=== PATIENT | female | born 1965 | race Caucasian/White ===

== ENCOUNTER 2016-11-29 11:56 | Outpatient (CLI) | payer MEDICARE ==
[2016-11-29 14:03] LABS: #Basophils 0.1 thou/uL (0.0-0.2); #Eosinphils 0.1 thou/uL (0.0-0.7); #Lymphocytes 2.1 thou/uL (1.20-3.40); #Monocytes 0.5 thou/uL (0.11-0.59); #Neutrophils 3.1 thou/uL (1.40-6.50); %Eosinophils 2.5 % (0.0-10.0); %Lymphocytes 35.5 % (21.0-51.0); %Monocytes 8.2 % (0.0-10.0); Hematocrit 42.9 % (36.0-47.0); Mean Platelet Volume 7.3 fL (7.4-10.4); Red Blood Cell (RBC) Count 4.82 mill/uL (4.20-5.40); White Blood Cell (WBC) Count 5.8 thou/uL (4.8-10.8)
[2016-11-29 14:13] LABS: ALT (SGPT) 12 U/L (0-55); AST (SGOT) 12 U/L (5-34); Alkaline Phosphatase 72 U/L (40-150); Anion Gap 12 mmol/L (10-20); BUN (Urea Nitrogen) 10 mg/dL (7.0-18.7); Bilirubin, Total 0.3 mg/dL (0.2-1.2); Calc. Creatinine Clearance 0 mL/min (70-130); Calcium 8.8 mg/dL (7.8-10.44); Carbon Dioxide 30 mmol/L (22-29); Chloride 105 mmol/L (98-107); Estimated GFR-MDRD 86; Globulin 2.4 g/dL (2.4-3.5); Protein, Total 5.8 g/dL (6.0-8.3)
== END 2016-11-29 11:57 ==
LOC: NAVSJIPCSP 11:56
PROVIDERS: ATTEND Internal Medicine
DX: G35 Multiple sclerosis (principal); N30.00 Acute cystitis without hematuria
CPT/HCPCS: 36415; 80053; 82607; 84443; 85025

== ENCOUNTER 2017-04-19 09:16 | Outpatient (CLI) | payer MEDICARE, OTHER ==
[2017-04-19 11:32] LABS: #Eosinphils 0.1 thou/uL (0.0-0.7); #Lymphocytes 1.6 thou/uL (1.20-3.40); #Monocytes 0.7 thou/uL (0.11-0.59); #Neutrophils 4.7 thou/uL (1.40-6.50); %Basophils 0.5 % (0.0-1.0); %Eosinophils 1.3 % (0.0-10.0); %Monocytes 9.3 % (0.0-10.0); Hemoglobin 13.6 g/dL (12.0-16.0); Mean Corpuscular HGB CONC 32.3 g/dL (32.0-36.0); Mean Corpuscular Hemoglobin 28.5 pg (27.0-31.0); Mean Corpuscular Volume 88.3 fl (81.0-99.0); Mean Platelet Volume 7.5 fL (7.4-10.4); Platelet Count 159 thou/uL (130-400); RBC Distribution Width 12.9 % (11.5-14.5); Red Blood Cell (RBC) Count 4.78 mill/uL (4.20-5.40); White Blood Cell (WBC) Count 7.1 thou/uL (4.8-10.8)
[2017-04-19 11:49] LABS: ALT (SGPT) 14 U/L (8-55); AST (SGOT) 14 U/L (5-34); Albumin 3.4 g/dL (3.5-5.0); Alkaline Phosphatase 63 U/L (40-150); Anion Gap 13 mmol/L (10-20); BUN (Urea Nitrogen) 8 mg/dL (7.0-18.7); Bilirubin, Total 0.4 mg/dL (0.2-1.2); Calc. Creatinine Clearance 0 mL/min (70-130); Calcium 8.8 mg/dL (7.8-10.44); Carbon Dioxide 30 mmol/L (22-29); Cardiac Risk 5.4 (Less than 4.5); Chloride 103 mmol/L (98-107); Cholesterol 210 mg/dl (< 200 Desired); Estimated GFR-MDRD 82; Globulin 2.3 g/dL (2.4-3.5); Glucose 83 mg/dL (70-105); HDL Cholesterol 39 mg/dL (>60 Neg Risk); LDL Cholesterol, Calculated 143 mg/dL; Potassium 4.4 mmol/L (3.5-5.1); Protein, Total 5.7 g/dL (6.0-8.3); Sodium 142 mmol/L (136-145); Triglycerides 140 mg/dL (Less than 150)
[2017-04-19 17:31] LABS: Valproic Acid (Depakene) 81.1 ug/mL (50.0-100.0)
== END 2017-04-19 09:17 | disposition home or self-care (01) ==
LOC: NAV LABSP 09:16
PROVIDERS: ATTEND Internal Medicine
DX: G35 Multiple sclerosis (principal); N39.0 Urinary tract infection, site not specified; G47.00 Insomnia, unspecified; R19.7 Diarrhea, unspecified
CPT/HCPCS: 36415; 80053; 80061; 80164; 84443; 85025

== ENCOUNTER 2019-09-25 19:08 | Inpatient (IN) | payer MEDICARE, OTHER ==
[2019-09-25 19:40] LABS: Bilirubin Negative (Negative); Blood, Urine Trace (Negative); Clarity Cloudy (Clear); Glucose, Urine (Dipstick) Negative (Negative); Leukocyte Moderate (Negative); Nitrite Positive (Negative); Protein, Urine (Dipstick) Trace mg/dL (Neg-Trace)
[2019-09-25 19:45] LABS: RBC/HPF None Seen HPF (0-3)
[2019-09-25 19:46] LABS: Squamous Epithelial 0-3 HPF (0-3)
[2019-09-25 19:47] LABS: Bacteria/HPF 3+ HPF (None Seen)
[2019-09-25 20:27] LABS: Hemoglobin 12.5 g/dL (12.0-16.0); Mean Corpuscular Hemoglobin 27.8 pg (27.0-31.0); Mean Corpuscular Volume 87.1 fL (78.0-98.0); Platelet Count 135 thou/uL (130-400); RBC Distribution Width 13.3 % (11.5-14.5); Red Blood Cell (RBC) Count 4.48 mill/uL (4.20-5.40); White Blood Cell (WBC) Count 5.5 thou/uL (4.8-10.8)
--- NOTE | 2019-09-25 20:37 | RAD ---
PORTABLE CHEST: 09/25/19 PROVIDED CLINICAL HISTORY: Fever. FINDINGS: The cardiac and mediastinal silhouette is within normal limits. Lungs appear clear. No pleural fluid or pneumothorax apparent. IMPRESSION: No evidence for an acute cardiopulmonary process. POS: JADA
[2019-09-25 20:39] LABS: ALT (SGPT) 19 U/L (8-55); AST (SGOT) 21 U/L (5-34); Albumin 3.7 g/dL (3.5-5.0); Alkaline Phosphatase 58 U/L (40-110); Anion Gap 16 mmol/L (10-20); BUN (Urea Nitrogen) 16 mg/dL (9.8-20.1); Bilirubin, Total 0.3 mg/dL (0.2-1.2); Calc. Creatinine Clearance 0 mL/min (70-130); Calcium 8.8 mg/dL (7.8-10.44); Carbon Dioxide 23 mmol/L (22-29); Chloride 102 mmol/L (98-107); Estimated GFR-MDRD 84; Globulin 2.3 g/dL (2.4-3.5); Glucose 124 mg/dL (70-105); Potassium 4.1 mmol/L (3.5-5.1); Sodium 137 mmol/L (136-145)
[2019-09-25] MEDS ORDERED: Sodium Chloride 0.9% 100 ML ONE (20:49)
[2019-09-25] MEDS ORDERED: cefTRIAXone\\ROCEPHIN 1 GM VIAL ONE (20:49)
[2019-09-25 21:05] LABS: Band 6 % (5-11); Eosinophils 2 % (0-10); Lymphocytes 21 % (21-51); MDiff Complete? YES; Monocytes 7 % (0-10); Neutrophil 63 % (42-75); Platelet Morphology Comment Appears Adequate; RBC Morphology Normal; Reactive Lymphocytes 1 % (0-10)
[2019-09-25] MEDS ORDERED: Acetaminophen 325 MG TAB PO PRN (22:09)
[2019-09-25 22:13] VITALS: BMI 31.9
[2019-09-25] MEDS ORDERED: Milk Of Magnesia 30 ML UDCUP PO PRN (22:18)
[2019-09-25] MEDS: Sodium Chloride 0.9% 1,000 ML IV SCH (22:58)
[2019-09-25] MEDS ORDERED: DULoxetine 30 MG CAP PO SCH (23:00)
[2019-09-25] MEDS ORDERED: Baclofen 10 MG TAB PO SCH (23:00)
[2019-09-25] MEDS ORDERED: busPIRone HCl 5 MG TAB PO SCH (23:00)
[2019-09-25] MEDS ORDERED: Diazepam 5 MG TAB PO SCH (23:00)
[2019-09-25] MEDS ORDERED: Trospium 20 MG TAB PO SCH (23:00)
[2019-09-25] MEDS: Acetaminophen/Codeine 30-300mg Tablet PO PRN (23:01)
[2019-09-26] MEDS: Sodium Chloride 0.9% 1,000 ML IV SCH ×2 (02:04→10:40)
[2019-09-26] MEDS: Baclofen 10 MG TAB PO SCH ×3 (08:13→21:01)
[2019-09-26] MEDS: CRANBERRY PO SCH (08:31)
[2019-09-26] MEDS: VIT C PO SCH (08:31)
[2019-09-26] MEDS: CeleCOXIB 100 MG CAP PO SCH (08:31)
[2019-09-26] MEDS ORDERED: AMOXicillin 500 MG CAP PO SCH (09:00)
[2019-09-26] MEDS ORDERED: FLU VACC QS2019-20(6MOS UP)/PF 60 MCG/0.5 ML SYRINGE IM ONE (09:00)
[2019-09-26] MEDS ORDERED: ADDERALL 30 MG PO SCH ×2 (09:00→11:00)
[2019-09-26] MEDS ORDERED: AMOXicillin 250 MG CAP PO SCH (09:00)
[2019-09-26] MEDS ORDERED: busPIRone HCl 5 MG TAB PO SCH (09:00)
[2019-09-26] MEDS ORDERED: Trospium 20 MG TAB PO SCH (09:00)
[2019-09-26] MEDS: busPIRone HCl 5 MG TAB PO PRN (13:56)
--- NOTE | 2019-09-26 20:21 | RAD ---
EXAM: Portable chest PROVIDED CLINICAL HISTORY: Pneumonia COMPARISON: 09/25/2019 FINDINGS: Cardiac and mediastinal silhouette is within normal limits. No focal consolidation, pleural fluid or pneumothorax evident. IMPRESSION: No evidence for an acute cardiopulmonary process.
[2019-09-26] MEDS ORDERED: Diazepam 5 MG TAB PO SCH (21:00)
[2019-09-26] MEDS: DULoxetine 30 MG CAP PO SCH (21:01)
[2019-09-26] MEDS: cefTRIAXone\\ROCEPHIN 1 GM in Sodium Chloride 0.9% 100 ML IVPB SCH (21:02)
--- NOTE | 2019-09-26 21:18 | PRG ---
DATE OF SERVICE: 09/26/2019 SUBJECTIVE: The patient is much more awake and alert at baseline mental status. She is having some cough and congestion, but denies any shortness of breath. OBJECTIVE: VITAL SIGNS: Temperature is 99.9, pulse 89, respirations 18, O2 saturations 93% on room air, blood pressure 114/57. IMAGING: Chest x-ray, however, shows no infiltrate. LABORATORY DATA: Urine and blood cultures are pending, no growth as of yet. ASSESSMENT: 1. Resolving urinary tract infection, sepsis syndrome. 2. Stable multiple sclerosis at baseline mental status. PLAN: 1. Change IV to saline lock. 2. Continue Rocephin. 3. Continue home medications. 4. Await results of cultures, possibly discharge soon. Job ID: [id number]
[2019-09-26] MEDS: Diazepam 5 MG TAB PO PRN (23:23)
[2019-09-26] MEDS: Acetaminophen/Codeine 30-300mg Tablet PO PRN (23:23)
--- NOTE | 2019-09-27 03:01 | HP ---
CHIEF COMPLAINT: Altered mental status secondary to urinary tract infection with sepsis syndrome. HISTORY OF PRESENT ILLNESS: The patient is an unfortunate 54-year-old white female with a history of multiple sclerosis, [facility] with a history of recurrent urinary tract infections, but with no previous history of sepsis. She presents, however, now with decreased mental status, minimal responsiveness, which is a direct change from her previous condition. She in fact has a [place] coma Scale of 11. The patient is unable to give history. History is obtained from previous examinations. She does have a history also of adult hyperactivity disorder, chronic pain, gastroesophageal reflux, muscle spasms. ALLERGIES: SHE HAS NO KNOWN ALLERGIES. CURRENT MEDICATIONS: Including, 1. Adderall 30 mg daily. 2. Amoxicillin 500 daily for prevention of infections. 3. Celebrex 200 daily. 4. Detrol LA 4 mg daily. 5. Buspirone 5 mg three times daily. 6. Cymbalta 60 mg daily. 7. Depakote extended release 500 mg daily. 8. Diazepam 5 mg at night. REVIEW OF SYSTEMS: Unobtainable. PHYSICAL EXAMINATION: GENERAL: The patient is a middle-aged white female who is sedated, but appears to be in no respiratory distress. VITAL SIGNS: Showed to have respirations 18, temperature 99.5, O2 sats 96% on room air, blood pressure 107/82, and pulse 103. HEENT: Pupils are equal, round, and reactive to light and accommodation. Sclerae anicteric. Conjunctivae pale. Oral mucous membranes well hydrated. There are some dental caries. NECK: Supple. There are no nodes or masses. JVP is not elevated. LUNGS: Clear. CARDIAC: Examination shows regular rhythm. No gallops or murmurs. ABDOMEN: Soft and nontender with no masses or organomegaly. SKIN: Extremities show no edema, clubbing, or cyanosis. NEUROLOGICAL: Intact except for the patient not responding, but does appear to move all extremities to pain. LABORATORY DATA: Show white count of 5500, hematocrit 39, hemoglobin 12. Lactate is 1.6. Sodium 137, potassium 4.1, chloride 102, bicarb 23, BUN 16, creatinine 0.73, glucose 124, calcium 8.8, total bilirubin 0.3, AST 21, ALT 19, alkaline phosphatase 58, total protein 6.0, albumin 3.7, globulin 2.3. Urinalysis did show 11-20 white cells. The patient appears to be showing E coli and Aerococcus routinely. Recent cultures had been treated for this with Rocephin in the emergency room. ASSESSMENT: A 54-year-old white female with history of multiple sclerosis and adult hyperactive disorder, who presents with altered mental status, unresponsiveness, recurrent urinary tract infections, felt to have sepsis syndrome causing this, will be admitted to the hospital, started on IV Rocephin 1 g daily, restarted back on home medications. Blood cultures and urine cultures done. Will be monitored closely for improvement. Job ID: [id number]
[2019-09-27 05:21] LABS: Band 2 % (5-11); Hemoglobin 11.1 g/dL (12.0-16.0); Lymphocytes 50 % (21-51); MDiff Complete? YES; Mean Corpuscular HGB CONC 31.7 g/dL (32.0-36.0); Mean Corpuscular Hemoglobin 27.8 pg (27.0-31.0); Mean Corpuscular Volume 87.7 fL (78.0-98.0); Mean Platelet Volume 8.8 fL (7.4-10.4); Monocytes 12 % (0-10); Neutrophil 36 % (42-75); Platelet Count 113 thou/uL (130-400); Platelet Morphology Comment Appears Decreased; RBC Distribution Width 13.7 % (11.5-14.5); RBC Morphology Normal; White Blood Cell (WBC) Count 4.6 thou/uL (4.8-10.8)
[2019-09-27] MEDS: CRANBERRY PO SCH (09:11)
[2019-09-27] MEDS: VIT C PO SCH (09:11)
[2019-09-27] MEDS: Baclofen 10 MG TAB PO SCH ×3 (09:16→20:43)
[2019-09-27] MEDS: CeleCOXIB 100 MG CAP PO SCH (09:17)
[2019-09-27] MEDS: ADDERALL 30 MG PO SCH (09:17)
[2019-09-27] MEDS: Acetaminophen/Codeine 30-300mg Tablet PO PRN ×2 (12:27→22:00)
[2019-09-27] MEDS: busPIRone HCl 5 MG TAB PO PRN (12:27)
[2019-09-27] MEDS: cefTRIAXone\\ROCEPHIN 1 GM in Sodium Chloride 0.9% 100 ML IVPB SCH (20:42)
[2019-09-27] MEDS: DULoxetine 30 MG CAP PO SCH (20:43)
[2019-09-27] MEDS: Diazepam 5 MG TAB PO PRN (22:00)
--- NOTE | 2019-09-28 08:37 | PRG ---
DATE OF SERVICE: 09/27/2019 SUBJECTIVE: The patient feels well, better baseline, mental status alert, oriented to person, but somewhat confused, still having a slight cough but no respiratory distress. OBJECTIVE: VITAL SIGNS: Blood pressure is 105/66, temperature is 97, pulse 80, respirations 18, O2 sats 94% on room air. LUNGS: Clear. CARDIAC: Regular rhythm. Chest x-ray shows no infiltrate. Urine culture showing gram-negative anastasiia, presumptive Proteus with no sensitivities as of yet. ASSESSMENT: 1. Resolving urinary tract infection, possible sepsis, on IV Rocephin. Awaiting results of culture to determine oral antibiotics and be able to discharge back to long term. 2. Stable multiple sclerosis. 3. Stable attention deficit hyperactivity disorder. PLAN: Continue Rocephin. Await urine culture. Discharge back to long term if oral antibiotics able to treat infection. Job ID: [id number]
[2019-09-28] MEDS ORDERED: FLU VACC QS2019-20(6MOS UP)/PF 60 MCG/0.5 ML SYRINGE IM ONE (09:00)
[2019-09-28] MEDS: Baclofen 10 MG TAB PO SCH ×2 (09:01→15:11)
[2019-09-28] MEDS: ADDERALL 30 MG PO SCH (09:02)
[2019-09-28] MEDS: CeleCOXIB 100 MG CAP PO SCH (09:05)
[2019-09-28] MEDS: VIT C PO SCH (09:06)
[2019-09-28] MEDS: CRANBERRY PO SCH (09:06)
[2019-09-28 14:13] VITALS: BP 117/56; TEMP 99.1
[2019-09-28] MEDS ORDERED: Sterile Water 10 ML ONE (17:56)
[2019-09-28] MEDS: cefTRIAXone\\ROCEPHIN 1 GM in Sodium Chloride 0.9% 100 ML IVPB SCH (18:01)
== END 2019-09-28 18:38 | DRG 871 ==
LOC: NAV ERS 19:08 → NAV ACUTE 20:56
PROVIDERS: ADMIT Internal Medicine; ATTEND Internal Medicine
DX: A41.9 Sepsis, unspecified organism (principal); R40.2222 Coma scale, best verbal response, incomprehensible words, at arrival to emergency department; N39.0 Urinary tract infection, site not specified; G35 Multiple sclerosis; F90.1 Attention-deficit hyperactivity disorder, predominantly hyperactive type; R40.2142 Coma scale, eyes open, spontaneous, at arrival to emergency department; R40.2352 Coma scale, best motor response, localizes pain, at arrival to emergency department; K21.9 Gastro-esophageal reflux disease without esophagitis; F90.9 Attention-deficit hyperactivity disorder, unspecified type
CPT/HCPCS: 36415; 51701; 71045; 80053; 81003; 81015; 83605; 85025; 87040; 87077; 87086; 87186; 90471; 90686; 96360; A4353; G0008; J0696; J3490; J7050

== ENCOUNTER 2020-10-04 19:29 | Inpatient (IN) | payer MEDICARE, OTHER ==
[2020-10-04 20:07] LABS: Bacteria/HPF 4+ HPF (None Seen); Bilirubin Negative (Negative); Blood, Urine Trace (Negative); Clarity Slightly Cloudy (Clear); Glucose, Urine (Dipstick) Negative (Negative); Ketone, Urine Trace mg/dL (Negative); Leukocyte Large (Negative); Nitrite Positive (Negative); Protein, Urine (Dipstick) 30 mg/dL (Neg-Trace); RBC/HPF 0-3 HPF (0-3); Squamous Epithelial 0-3 HPF (0-3); WBC/HPF 21-50 HPF (0-3)
[2020-10-04 20:31] LABS: #Lymphocytes 0.7 thou/uL (1.20-3.40); #Monocytes 0.7 thou/uL (0.11-0.59); #Neutrophils 10.8 thou/uL (1.40-6.50); %Basophils 0.4 % (0.0-1.0); %Eosinophils 0.1 % (0.0-10.0); %Lymphocytes 5.8 % (21.0-51.0); %Monocytes 5.4 % (0.0-10.0); %Neutrophils 88.3 % (42.0-75.0); Hemoglobin 13.1 g/dL (12.0-16.0); Mean Corpuscular HGB CONC 31.2 g/dL (32.0-36.0); Mean Corpuscular Hemoglobin 27.8 pg (27.0-31.0); Mean Corpuscular Volume 88.9 fL (78.0-98.0); Mean Platelet Volume 8.5 fL (7.4-10.4); Platelet Count 133 thou/uL (130-400); RBC Distribution Width 13.8 % (11.5-14.5); Red Blood Cell (RBC) Count 4.71 mill/uL (4.20-5.40); White Blood Cell (WBC) Count 12.3 thou/uL (4.8-10.8)
[2020-10-04] MEDS ORDERED: cefTRIAXone\\ROCEPHIN 2 GM VIAL ONE (20:49)
[2020-10-04 20:50] LABS: ALT (SGPT) 20 U/L (8-55); AST (SGOT) 15 U/L (5-34); Albumin 3.3 g/dL (3.5-5.0); Alkaline Phosphatase 65 U/L (40-110); Anion Gap 12 mmol/L (10-20); BUN (Urea Nitrogen) 20 mg/dL (9.8-20.1); Bilirubin, Total 0.4 mg/dL (0.2-1.2); Calc. Creatinine Clearance 0 mL/min (70-130); Calcium 8.4 mg/dL (7.8-10.44); Carbon Dioxide 26 mmol/L (22-29); Chloride 103 mmol/L (98-107); Estimated GFR-MDRD 81; Globulin 2.7 g/dL (2.4-3.5); Glucose 192 mg/dL (70-105); Sodium 137 mmol/L (136-145)
--- NOTE | 2020-10-04 21:03 | RAD ---
AP CHEST: 10/04/20 HISTORY: Fever. COMPARISON: 09/26/19 Lungs appear clear. No evidence of infiltrate identified. Heart and mediastinum unremarkable. No inte rval change. IMPRESSION: No acute findings. POS: AGW
[2020-10-04] MEDS ORDERED: Sodium Chloride 0.9% 500 ML ONE (21:44)
[2020-10-04 23:03] VITALS: BMI 30.4
[2020-10-04] MEDS ORDERED: Diazepam 5 MG TAB PO SCH (23:30)
[2020-10-04] MEDS ORDERED: Baclofen 10 MG TAB PO SCH (23:30)
[2020-10-04] MEDS ORDERED: Sodium Chloride 0.9% 10 ML ONE (23:58)
[2020-10-05] MEDS ORDERED: Sodium Chloride 0.9% 1,000 ML IV SCH (00:45)
[2020-10-05] MEDS ORDERED: Ondansetron PF 4 MG/2 ML Vial IVP PRN (06:30)
[2020-10-05] MEDS ORDERED: Acetaminophen 325 MG TAB PO PRN (06:30)
[2020-10-05 07:45] LABS: Band 40 % (5-11); Hemoglobin 13.4 g/dL (12.0-16.0); Lymphocytes 11 % (21-51); MDiff Complete? YES; Mean Corpuscular Hemoglobin 28.1 pg (27.0-31.0); Mean Corpuscular Volume 90.6 fL (78.0-98.0); Mean Platelet Volume 10.7 fL (7.4-10.4); Metamyelocyte 1 % (0-0); Monocytes 2 % (0-10); Neutrophil 46 % (42-75); Platelet Clumps SLIGHT; Platelet Count 77 thou/uL (130-400); Platelet Morphology Comment Appears Decreased; RBC Distribution Width 14.1 % (11.5-14.5); RBC Morphology Normal; Red Blood Cell (RBC) Count 4.76 mill/uL (4.20-5.40); White Blood Cell (WBC) Count 21.7 thou/uL (4.8-10.8)
[2020-10-05] MEDS: Enoxaparin Sodium 40 MG/0.4 ML SYRINGE SC SCH (08:01)
[2020-10-05] MEDS: Baclofen 10 MG TAB PO SCH ×3 (08:02→20:26)
[2020-10-05] MEDS: Oxybutynin 5 MG TAB PO SCH (08:02)
[2020-10-05] MEDS: DULoxetine 30 MG CAP PO SCH (08:02)
[2020-10-05] MEDS: busPIRone HCl 5 MG TAB PO SCH ×3 (08:02→20:27)
[2020-10-05] MEDS: Famotidine/PF 20 mg/2ml Vial SLOW IVP SCH ×2 (08:03→20:27)
[2020-10-05] MEDS: CeleCOXIB 100 MG CAP PO SCH (08:04)
[2020-10-05] MEDS: Sodium Chloride 0.9% 1,000 ML IV SCH ×3 (08:05→22:53)
[2020-10-05] MEDS: CRANBERRY PLUS VITAMIN C SFTGL PO SCH (08:08)
[2020-10-05] MEDS: COPAXONE 20 MG SC SCH (08:08)
[2020-10-05] MEDS: ADDERALL 30 MG PO SCH (08:08)
[2020-10-05] MEDS ORDERED: GLATIRAMER ACETATE 40 MG/ML SQ SCH (09:00)
[2020-10-05] MEDS ORDERED: Non-Formulary Item 1 EACH (Dextroamphetamine/Amphetamine [Adderall] 30 MG Tablet) PO SCH (09:00)
[2020-10-05] MEDS ORDERED: Non-Formulary Item 1 EACH (Baclofen [Baclofen] 20 MG Tablet) PO SCH (09:00)
[2020-10-05] MEDS ORDERED: Vancomycin HCl 1 GM in Sodium Chloride 0.9% 250 ML 250 ML IVPB SCH (09:00)
[2020-10-05] MEDS ORDERED: Non-Formulary Item 1 EACH (Celecoxib [Celebrex] 200 MG Capsule) PO SCH (09:00)
[2020-10-05] MEDS ORDERED: busPIRone HCl 5 MG TAB PO SCH (09:00)
[2020-10-05 11:00] LABS: Lactic Acid 3.6 mmol/L (0.5-2.2)
[2020-10-05 11:04] LABS: Anion Gap 15 mmol/L (10-20); BUN (Urea Nitrogen) 17 mg/dL (9.8-20.1); Calc. Creatinine Clearance 132 mL/min (70-130); Calcium 8.4 mg/dL (7.8-10.44); Carbon Dioxide 24 mmol/L (22-29); Chloride 103 mmol/L (98-107); Estimated GFR-MDRD 83; Glucose 108 mg/dL (70-105); Potassium 4.7 mmol/L (3.5-5.1); Sodium 137 mmol/L (136-145)
[2020-10-05] MEDS: Piperacillin/Tazobactam 3.375 GM in Sodium Chloride 0.9% 100 ML IVPB SCH ×2 (13:04→19:19)
[2020-10-05 18:30] LABS: SARS-CoV-2 MS2 Positive; SARS-CoV-2 N Gene Positive; SARS-CoV-2 S Gene Negative; SARS-CoV-2 by NAA DETECTED (NotDetected); SARS-CoV-2 orf1ab Positive
[2020-10-05] MEDS: cefTRIAXone\\ROCEPHIN 2 GM in Sodium Chloride 0.9% 100 ML IVPB SCH (19:09)
--- NOTE | 2020-10-05 19:59 | RAD ---
RADIOGRAPH CHEST 1 VIEW: DATE: 10/05/2020 TIME: 7:41 PM HISTORY: 55-year-old COVID-19 positive female presents with fever COMPARISON: 10/04/2020 FINDINGS: Subtle finding of faint small, subtle pulmonary ill-defined densities at right medial base and left m edial and lateral base, possibly new since prior study. No consolidation or cardiomegaly. No pneumothorax. IMPRESSION: Questionable faint mild bibasilar infiltrates. Recommend continued follow-up.
[2020-10-05] MEDS: Diazepam 5 MG TAB PO SCH (20:27)
[2020-10-05] MEDS ORDERED: Diazepam 5 MG TAB PO SCH (21:00)
[2020-10-05] MEDS ORDERED: FLU VACC QS2020-21(6MOS UP)/PF 60 MCG/0.5 ML SYRINGE IM ONE (21:00)
[2020-10-05] MEDS ORDERED: DULOXETINE HCL 60 MG PO SCH (21:00)
--- NOTE | 2020-10-06 02:10 | HP ---
HISTORY OF PRESENT ILLNESS: The patient is a 55-year-old unfortunate white female with a history of multiple sclerosis, progressive dementia, and recurrent urinary tract infections, who presented with a decrease in her mental status and fever. She was found to have a urinary tract infection with signs of sepsis with tachycardia as well as an elevated lactate of 3.4. Her chest x-ray was clear, however, and her blood pressure and O2 saturation were normal, COVID test was done, but results were not available initially on admission. It was felt that she was stable to be admitted to [facility] and therefore was admitted. History is not available because of patient's condition. Review of systems is obtained in the custodial when she has temperature to 102, foul-smelling urine, decreased mental status. PAST MEDICAL HISTORY: Obtained from the nursing homes for multiple sclerosis, recurrent UTIs, gastroesophageal reflux, osteoarthritis. ALLERGIES: SHE HAS NO KNOWN ALLERGIES. MEDICATIONS: Included; 1. Adderall 30 mg daily. 2. Amoxicillin 500 daily. 3. Celebrex 200 daily. 4. Detrol LA 24 daily. 5. Cymbalta 60 mg daily. 6. Depakote 500 daily. PHYSICAL EXAMINATION: GENERAL: The patient is a middle-aged white female, moaning and groaning, responsive only to pain. Appears to be in no respiratory distress. VITAL SIGNS: Initially showed her to have 147/86, pulse 120, O2 saturation 100% on room air. HEENT: Pupils are equal, round, and reactive to light and accommodation. Sclerae anicteric. Conjunctivae are within normal limits. Oral mucous membranes dehydrated. . NECK: Supple. There are no nodes or masses. JVP is not elevated. LUNGS: Clear. CARDIAC: Showed regular rhythm. No gallops or murmurs, but tachycardic rhythm. ABDOMEN: Obese, but nontender. SKIN/EXTREMITIES: Show edema, right greater than left. NEUROLOGIC: Shows patient moves all extremities to pain. LABORATORY DATA: White count 21,700, hematocrit 43, hemoglobin 13. Sodium is 137, potassium 4.0 chloride 103, bicarb 26, BUN 20, creatinine 0.75, glucose 192. Lactic acid is 3.6, calcium is 8.4. Urinalysis shows large leukocyte 21 to 50 white cells. ASSESSMENT: Urinary tract infection with sepsis syndrome, stable multiple sclerosis. PLAN: 1. Normal saline 125 an hour, broad-spectrum antibiotic with Zosyn and vancomycin. 2. COVID testing. 3. Continue home medications. Job ID: [id number]
[2020-10-06] MEDS: Sodium Chloride 0.9% 1,000 ML IV SCH ×3 (05:15→16:05)
[2020-10-06 05:55] LABS: Lactic Acid 1.1 mmol/L (0.5-2.2)
[2020-10-06 06:00] LABS: Anion Gap 8 mmol/L (10-20); BUN (Urea Nitrogen) 13 mg/dL (9.8-20.1); Calc. Creatinine Clearance 133 mL/min (70-130); Calcium 8.1 mg/dL (7.8-10.44); Carbon Dioxide 24 mmol/L (22-29); Chloride 108 mmol/L (98-107); Estimated GFR-MDRD 85; Glucose 130 mg/dL (70-105); Potassium 3.4 mmol/L (3.5-5.1); Sodium 137 mmol/L (136-145)
[2020-10-06 06:55] LABS: Band 31 % (5-11); Hemoglobin 11.7 g/dL (12.0-16.0); Lymphocytes 21 % (21-51); MDiff Complete? YES; Mean Corpuscular HGB CONC 32.1 g/dL (32.0-36.0); Mean Corpuscular Hemoglobin 28.3 pg (27.0-31.0); Mean Corpuscular Volume 88.3 fL (78.0-98.0); Mean Platelet Volume 8.7 fL (7.4-10.4); Metamyelocyte 1 % (0-0); Monocytes 5 % (0-10); Neutrophil 42 % (42-75); Platelet Count 112 thou/uL (130-400); Platelet Morphology Comment Appears Decreased; RBC Distribution Width 14.2 % (11.5-14.5); RBC Morphology Normal; Red Blood Cell (RBC) Count 4.12 mill/uL (4.20-5.40); White Blood Cell (WBC) Count 11.8 thou/uL (4.8-10.8)
[2020-10-06] MEDS: Enoxaparin Sodium 40 MG/0.4 ML SYRINGE SC SCH (08:42)
[2020-10-06] MEDS: DULoxetine 30 MG CAP PO SCH (08:43)
[2020-10-06] MEDS: Famotidine/PF 20 mg/2ml Vial SLOW IVP SCH ×2 (08:43→20:08)
[2020-10-06] MEDS: busPIRone HCl 5 MG TAB PO SCH ×3 (08:44→20:09)
[2020-10-06] MEDS: Oxybutynin 5 MG TAB PO SCH (08:44)
[2020-10-06] MEDS: Baclofen 10 MG TAB PO SCH ×3 (08:44→20:10)
[2020-10-06] MEDS: CeleCOXIB 100 MG CAP PO SCH (08:46)
[2020-10-06] MEDS: COPAXONE 20 MG SC SCH (08:47)
[2020-10-06] MEDS: ADDERALL 30 MG PO SCH (08:47)
[2020-10-06] MEDS ORDERED: Dexamethasone 6 MG in Sodium Chloride 0.9% 50 ML IVPB SCH (09:00)
[2020-10-06] MEDS ORDERED: Dexamethasone 4 mg/ml Vial SLOW IVP SCH (09:00)
[2020-10-06] MEDS: CRANBERRY PLUS VITAMIN C SFTGL PO SCH (11:06)
[2020-10-06] MEDS ORDERED: Dexamethasone 4 MG TAB PO SCH (11:15)
--- OUTSIDE RECORDS SUMMARY | 2020-10-06 12:56 | XMS | Patient Health Record ---
:1965 Author Organization [facility] Care Team Providers Name Role Phone Sophia Alfred Unavailable [phone] Padmini Perez Unavailable [phone] King Cruz Unavailable [phone] Silas Low Unavailable [phone] PROBLEMS Type Condition ICD9-CM [id number] Onset Condition SNOMED Code Notes Code Code Dates Status Problem Multiple G35 Active 02569027 sclerosis Problem Acute cystitis N30.00 Active 62670422 without hematuria Problem Altered mental R41.82 Active 652620830 status, unspecified altered mental status type Problem Pain R52 Active 25259374 Problem Attention and R41.840 Active 28819809 concentration deficit Problem Anxiety disorder F41.9 Active 761244096 Problem Major depressive F32.9 Active 51255829 disorder, single episode, unspec ALLERGIES No Known Allergies ENCOUNTERS from 1965 to 2020-10-05 Encounter Location Date Provider Diagnosis [address] Sep, [facility] [place], [place] concent ration deficit Medicine - Primary [id number] R41.840 Care DAVID IMMUNIZATIONS No Information SOCIAL HISTORY Sex Assigned At : Social History Observation Description Sex Assigned At Unknown REASON FOR REFERRAL from 1965 to 2020-10-05 Reason CCM Referring Provider First Name Alfred Referring Provider Last Name Sophia Referring Provider Specialty Internal Medicine Referring Provider email [email or web address] Referred Provider [facility] stem, Medical Records Referral Priority Routine VITAL SIGNS from 1965 to 2020-10-05 Weight 182 lbs Jun, Height w/c in Dec, Heart Rate 86 /min May, Temperature 97.9 degrees Fahrenheit May, Oximetry 96 % May, Respiratory Rate 20 /min Jun, Blood pressure systolic 136 mm Hg May, Blood pressure diastolic 70 mm Hg May, MEDICATIONS Medication SIG (Take, Route, Frequency, Notes Start Date End Ej e Status Duration) Adderall 30 MG 30 Orally Once a day for 30 days Sep, 20 Active PROCEDURES No Information RESULTS No Results REASON FOR VISIT REFILL, Message, Refills, lps, refill of Adderall, Refills, lps, REFILL, lps, AMS, Rash to face, REFILL ON ADDERALL 30MG, Adderall Refill, 1 month f/u, Message, REFILL ADDERALL 30MG , Triplicate, REFILL, Nees triplicate, TRIPLICATE ON ADDERALL, Refills, Message, NEEDS RX FOR ADDERALL, NEEDS RX FOR ADDERALL, 6 month f/u me , rx refill, Adderall rx, REFILL ON TYLENOL W/COD #3, monthly f/u, PA NEEDED FOR NUVIGIL, New orders and Triplicate, Triplicate for Diazepam, Triplicate, Triplicate, Pt's behavior,6 mon f/u multiple sclerosis, Triple script., Rx, monthly visit, Triplicate, Rx, MS/ copaxone/ [facility], MS/Copaxone, MS/Copaxone MEDICAL (GENERAL) HISTORY Type Description Date Medical History Multiple Sclerosis Goals Section No Information Health Concerns No Information MEDICAL EQUIPMENT No Information MENTAL STATUS No Information FUNCTIONAL STATUS No Information ASSESSMENTS Encounter Date Diagnosis Assessment Notes Treatment Notes Treatm ent Clinical Notes Sep, Attention and concentration deficit (ICD-10 - R41.840) Jul, Attention and concentration deficit (ICD-10 - R41.840) Jul, Attention and concentration deficit (ICD-10 - R41.840) May, Attention and concentration deficit (ICD-10 - R41.840) Apr, Attention and concentration deficit (ICD-10 - R41.840) Apr, Attention and concentration deficit (ICD-10 - R41.840) March, Attention and concentration deficit (ICD-10 - R41.840) Jan, Attention and concentration deficit (ICD-10 - R41.840) Jan, Attention and concentration deficit (ICD-10 - R41.840) Dec, Attention and concentration deficit (ICD-10 - R41.840) Nov, Attention and concentration deficit (ICD-10 - R41.840) Oct, Attention and concentration deficit (ICD-10 - R41.840) Sep, Multiple sclerosis (ICD-10 - G35) Sep, Attention and concentration deficit (ICD-10 - R41.840) Aug, Attention and concentration deficit (ICD-10 - R41.840) Jul, Attention and concentration deficit (ICD-10 - R41.840) Jun, Attention and concentration deficit (ICD-10 - R41.840) May, Attention and stble and working concentration well with nurses deficit (ICD-10 - and getting out of R41.840) room May, Multiple sclerosis stable with (ICD-10 - G35) chronic chair ridden status but no change in mental confusion May, Major depressive stable disorder, single episode, unspec (ICD-10 - F32.9) May, Acute cystitis will start on rx without hematuria with bactrim (ICD-10 - N30.00) pending results of urine culture and will discuss with nurses about prophylactic care and start on dmannose May, Acute cystitis without hematuria (ICD-10 - N30.00) Apr, Attention and stble and working concentration well with nurses deficit (ICD-10 - and getting out of R41.840) room Apr, Multiple sclerosis stable with (ICD-10 - G35) chronic chair ridden status but no change in mental confusion Apr, Major depressive stable disorder, single episode, unspec (ICD-10 - F32.9) Apr, Acute cystitis will start on rx without hematuria with bactrim (ICD-10 - N30.00) pending results of urine culture and will discuss with nurses about prophylactic care and start on dmannose Apr, Attention and concentration deficit (ICD-10 - R41.840) March, Attention and stble and working concentration well with nurses deficit (ICD-10 - and getting out of R41.840) room March, Multiple sclerosis stable with (ICD-10 - G35) chronic chair ridden status but no change in mental confusion March, Major depressive stable disorder, single episode, unspec (ICD-10 - F32.9) March, Acute cystitis will start on rx without hematuria with bactrim (ICD-10 - N30.00) pending results of urine culture and will discuss with nurses about prophylactic care and start on dmannose Feb, Attention and concentration deficit (ICD-10 - R41.840) Feb, Attention and stble and working concentration well with nurses deficit (ICD-10 - and getting out of R41.840) room Feb, Multiple sclerosis stable with (ICD-10 - G35) chronic chair ridden status but no change in mental confusion Feb, Major depressive stable disorder, single episode, unspec (ICD-10 - F32.9) Feb, Acute cystitis will start on rx without hematuria with bactrim (ICD-10 - N30.00) pending results of urine culture and will discuss with nurses about prophylactic care and start on dmannose Jan, Attention and stble and working concentration well with nurses deficit (ICD-10 - and getting out of R41.840) room Jan, Multiple sclerosis stable with (ICD-10 - G35) chronic chair ridden status but no change in mental confusion Jan, Major depressive stable disorder, single episode, unspec (ICD-10 - F32.9) Jan, Acute cystitis will start on rx without hematuria with bactrim (ICD-10 - N30.00) pending results of urine culture and will discuss with nurses about prophylactic care Jan, Attention and concentration deficit (ICD-10 - R41.840) Dec, Attention and stble and working concentration well with nurses deficit (ICD-10 - and getting out of R41.840) room Dec, Multiple sclerosis stable with (ICD-10 - G35) chronic chair ridden status but no change in mental confusion Dec, Major depressive stable disorder, single episode, unspec (ICD-10 - F32.9) Dec, Acute cystitis will start on rx without hematuria with bactrim (ICD-10 - N30.00) pending results of urine culture and will discuss with nurses about prophylactic care Dec, Altered mental FAcility to obtain status, unspecified UA C&S. altered mental status type (ICD-10 - R41.82) Dec, Rash of face (ICD-10 Nursing facility - R21) to call MD/[facility] if rash does not resolve in the next 3-5 days. Dec, Attention and concentration deficit (ICD-10 - R41.840) Nov, Attention and concentration deficit (ICD-10 - R41.840) Nov, Attention and stble and working concentration well with nurses deficit (ICD-10 - and getting out of R41.840) room Nov, Multiple sclerosis stable with (ICD-10 - G35) chronic chair ridden status but no change in mental confusion Nov, Major depressive stable disorder, single episode, unspec (ICD-10 - F32.9) Nov, Acute cystitis will start on rx without hematuria with bactrim (ICD-10 - N30.00) pending results of urine culture and will discuss with nurses about prophylactic care Oct, Attention and concentration deficit (ICD-10 - R41.840) Oct, Attention and stble and working concentration well with nurses deficit (ICD-10 - and getting out of R41.840) room Oct, Multiple sclerosis stable with (ICD-10 - G35) chronic chair ridden status but no change in mental confusion Oct, Major depressive stable disorder, single episode, unspec (ICD-10 - F32.9) Oct, Acute cystitis will start on rx without hematuria with bactrim (ICD-10 - N30.00) pending results of urine culture and will discuss with nurses about prophylactic care Sep, Attention and stble and working concentration well with nurses deficit (ICD-10 - and getting out of R41.840) room Sep, Multiple sclerosis stable with (ICD-10 - G35) chronic chair ridden status but no change in mental confusion Sep, Major depressive stable disorder, single episode, unspec (ICD-10 - F32.9) Sep, Acute cystitis will start on rx without hematuria with bactrim (ICD-10 - N30.00) pending results of urine culture Sep, Attention and concentration deficit (ICD-10 - R41.840) Sep, Attention and concentration deficit (ICD-10 - R41.840) Aug, Multiple sclerosis stable off nuvigil (ICD-10 - G35) but doing well on adderal and more alert and lucid Aug, Attention and doing well on concentration adderal deficit (ICD-10 - R41.840) Aug, Major depressive improved with disorder, single decreased episode, unspec agitation and more (ICD-10 - F32.9) interaction with staff Aug, Other labs and nutrition wnl Aug, Attention and correction concentration request refill deficit (ICD-10 - R41.840) Jul, Attention and concentration deficit (ICD-10 - R41.840) Jul, Multiple sclerosis stable off nuvigil (ICD-10 - G35) but doing well on adderal and more alert and lucid Jul, Major depressive improved with disorder, single decreased episode, unspec agitation and more (ICD-10 - F32.9) interaction with staff Jul, Attention and doing well on concentration adderal deficit (ICD-10 - R41.840) Jul, Other labs and nutrition wnl Jun, Attention and concentration deficit (ICD-10 - R41.840) Jun, Multiple sclerosis stable off nuvigil (ICD-10 - G35) but doing well on adderal and more alert and lucid Jun, Multiple sclerosis stable off nuvigil (ICD-10 - G35) but doing well on adderal and more alert and lucid Jun, Major depressive improved with disorder, single decreased episode, unspec agitation and more (ICD-10 - F32.9) interaction with staff Jun, Major depressive improved with disorder, single decreased episode, unspec agitation and more (ICD-10 - F32.9) interaction with staff Jun, Attention and doing well on concentration adderal deficit (ICD-10 - R41.840) Jun, Attention and doing well on concentration adderal deficit (ICD-10 - R41.840) Jun, Other labs and nutrition wnl but will repeat Jun, Other labs and nutrition wnl but will repeat May, Multiple sclerosis stable off nuvigil (ICD-10 - G35) but doing well on adderal and more alert and lucid May, Multiple sclerosis stable off nuvigil (ICD-10 - G35) but doing well on adderal and more alert and lucid May, Major depressive improved with disorder, single decreased episode, unspec agitation and more (ICD-10 - F32.9) interaction with staff May, Major depressive improved with disorder, single decreased episode, unspec agitation and more (ICD-10 - F32.9) interaction with staff May, Attention and doing well on concentration adderal deficit (ICD-10 - R41.840) May, Attention and doing well on concentration adderal deficit (ICD-10 - R41.840) May, Other labs and nutrition wnl but will repeat May, Other labs and nutrition wnl but will repeat May, Attention and concentration deficit (ICD-10 - R41.840) Apr, Multiple sclerosis stable off nuvigil (ICD-10 - G35) but doing well on adderal and more alert and lucid Apr, Major depressive improved with disorder, single decreased episode, unspec agitation and more (ICD-10 - F32.9) interaction with staff Apr, Attention and doing well on concentration adderal deficit (ICD-10 - R41.840) Apr, Other labs and nutrition wnl but will repeat March, Multiple sclerosis stable off nuvigil (ICD-10 - G35) but doing well on adderal and more alert and lucid March, Attention and concentration deficit (ICD-10 - R41.840) March, Major depressive improved with disorder, single decreased episode, unspec agitation and more (ICD-10 - F32.9) interaction with staff March, Attention and doing well on concentration adderal deficit (ICD-10 - R41.840) March, Other labs and nutrition wnl Feb, Acute cystitis resolved after without hematuria therapy with no sx (ICD-10 - N30.00) off antibiotics and normal urinalysis Feb, Multiple sclerosis stable off nuvigil (ICD-10 - G35) but doing well on adderal and more alert and lucid Feb, Major depressive improved with disorder, single decreased episode, unspec agitation and more (ICD-10 - F32.9) interaction with staff Feb, Attention and doing well on concentration adderal deficit (ICD-10 - R41.840) Feb, Pain (ICD-10 - R52) stable on meds but will attempt to wean Feb, Other labs and nutrition wnl Jan, Acute cystitis resolved after without hematuria therapy with no sx (ICD-10 - N30.00) off antibiotics and normal urinalysis Jan, Multiple sclerosis stable off nuvigil (ICD-10 - G35) but doing well on adderal and more alert and lucid Jan, Major depressive improved with disorder, single decreased episode, unspec agitation and more (ICD-10 - F32.9) interaction with staff Jan, Attention and doing well on concentration adderal deficit (ICD-10 - R41.840) Jan, Pain (ICD-10 - R52) stable on meds but will attempt to wean Jan, Other labs and nutrition wnl Dec, Attention and concentration deficit (ICD-10 - R41.840) Dec, UTI (urinary tract infection), site not specified (ICD-10 - N39.0) Dec, Acute cystitis appears to have without hematuria recurred so will (ICD-10 - N30.00) start on cipro 250 mg bid and obtain urine cultuire Dec, Multiple sclerosis stable off nuvigil (ICD-10 - G35) but doing well on adderal but now more lethargic and may be due to meds or possible infection Dec, Major depressive improved with disorder, single decreased episode, unspec agitation and more (ICD-10 - F32.9) interaction with staff Dec, Attention and doing well on concentration adderal deficit (ICD-10 - R41.840) Dec, Pain (ICD-10 - R52) stable on meds but will attempt to wean Dec, Other labs and nutrition wnl Nov, Major depressive improved with disorder, single decreased episode, unspec agitation and more (ICD-10 - F32.9) interaction with staff Nov, Multiple sclerosis stable off nuvigil (ICD-10 - G35) but doing well on adderal but wishes to wean off next month and will discuss with staff and neurology Nov, Attention and doing well on concentration adderal deficit (ICD-10 - R41.840) Nov, Pain (ICD-10 - R52) stable on meds but will attempt to wean Nov, Acute cystitis resolved without hematuria (ICD-10 - N30.00) Nov, Other labs and nutrition wnl Oct, Major depressive improved with disorder, single decreased episode, unspec agitation and more (ICD-10 - F32.9) interaction with staff Oct, Multiple sclerosis stable off nuvigil (ICD-10 - G35) but doing well on adderal but wishes to wean off next month and will discuss with staff and neurology Oct, Attention and doing well on concentration adderal deficit (ICD-10 - R41.840) Oct, Pain (ICD-10 - R52) stable on meds but will attempt to wean Oct, Acute cystitis resolved without hematuria (ICD-10 - N30.00) Oct, Other labs and nutrition wnl Sep, Major depressive improved with disorder, single decreased episode, unspec agitation and more (ICD-10 - F32.9) interaction with staff Sep, Multiple sclerosis stable off nuvigil (ICD-10 - G35) but doing well on adderal but wishes to wean off next month and will discuss with staff and neurology Sep, Attention and doing well on concentration adderal deficit (ICD-10 - R41.840) Sep, Pain (ICD-10 - R52) stable on meds but will attempt to wean Sep, Acute cystitis resolved without hematuria (ICD-10 - N30.00) Sep, Other labs and nutrition wnl Aug, Multiple sclerosis (ICD-10 - G35) Aug, Pain (ICD-10 - R52) Aug, Major depressive improved with disorder, single decreased episode, unspec agitation and more (ICD-10 - F32.9) interaction with staff Aug, Multiple sclerosis stable off nuvigil (ICD-10 - G35) but doing well on adderal but wishes to wean off next month and will discuss with staff and neurology Aug, Attention and doing well on concentration adderal deficit (ICD-10 - R41.840) Aug, Pain (ICD-10 - R52) stable on meds but will attempt to wean Aug, Acute cystitis resolved without hematuria (ICD-10 - N30.00) Aug, Other labs and nutrition wnl Jul, Major depressive improved with disorder, single decreased episode, unspec agitation and more (ICD-10 - F32.9) interaction with staff Jul, Multiple sclerosis stable off nuvigil (ICD-10 - G35) but doing well on adderal but wishes to wean off next month and will discuss with staff and neurology Jul, Attention and doing well on concentration adderal deficit (ICD-10 - R41.840) Jul, Pain (ICD-10 - R52) stable on meds Jul, Acute cystitis resolved without hematuria (ICD-10 - N30.00) Jul, Other labs and nutrition wnl Jun, Major depressive improved with disorder, single decreased episode, unspec agitation and more (ICD-10 - F32.9) interaction with staff Jun, Multiple sclerosis stable off nuvigil (ICD-10 - G35) but doing well on adderal but wishes to wean off next month and will discuss with staff and neurology Jun, Attention and doing well on concentration adderal deficit (ICD-10 - R41.840) Jun, Pain (ICD-10 - R52) stable on meds Jun, Acute cystitis resolved without hematuria (ICD-10 - N30.00) Jun, Other labs and nutrition wnl May, Major depressive improved with disorder, single decreased episode, unspec agitation and more (ICD-10 - F32.9) interaction with staff May, Multiple sclerosis stable off nuvigil (ICD-10 - G35) but doing well on adderal but wishes to wean off next month and will discuss with staff and neurology May, Attention and doing well on concentration adderal deficit (ICD-10 - R41.840) May, Pain (ICD-10 - R52) stable on meds May, Acute cystitis resolved without hematuria (ICD-10 - N30.00) May, Other labs and nutrition wnl Apr, Major depressive improved with disorder, single decreased episode, unspec agitation and more (ICD-10 - F32.9) interaction with staff Apr, Multiple sclerosis stable off nuvigil (ICD-10 - G35) but doing well on adderal but wishes to wean off next month and will discuss with staff and neurology Apr, Attention and doing well on concentration adderal deficit (ICD-10 - R41.840) Apr, Pain (ICD-10 - R52) stable on meds Apr, Acute cystitis resolved without hematuria (ICD-10 - N30.00) Apr, Other labs and nutrition wnl March, Major depressive improved with disorder, single decreased episode, unspec agitation and more (ICD-10 - F32.9) interaction with staff March, Multiple sclerosis stable off nuvigil (ICD-10 - G35) but doing well on adderal but wishes to wean off next month and will discuss with staff and neurology March, Attention and doing well on concentration adderal deficit (ICD-10 - R41.840) March, Pain (ICD-10 - R52) stable on meds March, Acute cystitis resolved without hematuria (ICD-10 - N30.00) March, Other labs and nutrition wnl Feb, Major depressive improved with disorder, single decreased episode, unspec agitation and more (ICD-10 - F32.9) interaction with staff Feb, Multiple sclerosis stable off nuvigil (ICD-10 - G35) but doing well on adderal but wishes to wean off next month and will discuss with staff and neurology Feb, Attention and doing well on concentration adderal deficit (ICD-10 - R41.840) Feb, Pain (ICD-10 - R52) stable on meds Feb, Acute cystitis resolved without hematuria (ICD-10 - N30.00) Feb, Other labs and nutrition wnl Jan, Major depressive possibly disorder, single exacerbated and episode, unspec will talk to don (ICD-10 - F32.9) about patient and need for pyschiatry to evaluate Jan, Multiple sclerosis stable off nuvigil (ICD-10 - G35) but doing well on adderal Jan, Attention and doing well on concentration adderal deficit (ICD-10 - R41.840) Jan, Other labs and nutrition wnl Dec, Major depressive possibly disorder, single exacerbated and episode, unspec will talk to don (ICD-10 - F32.9) about patient and need for pyschiatry to evaluate Dec, Multiple sclerosis stable off nuvigil (ICD-10 - G35) but doing well on adderal Dec, Attention and doing well on concentration adderal deficit (ICD-10 - R41.840) Dec, Pain (ICD-10 - R52) stable on meds Dec, Acute cystitis resolved without hematuria (ICD-10 - N30.00) Dec, Other labs and nutrition wnl Nov, Multiple sclerosis (ICD-10 - G35) Nov, Multiple sclerosis stable off nuvigil (ICD-10 - G35) but doing well on adderal Nov, Attention and doing well on concentration adderal deficit (ICD-10 - R41.840) Nov, Major depressive stable disorder, single episode, unspec (ICD-10 - F32.9) Nov, Pain (ICD-10 - R52) Nov, Acute cystitis resolved without hematuria (ICD-10 - N30.00) Nov, Other labs and nutrition wnl Oct, Multiple sclerosis (ICD-10 - G35) Oct, Acute cystitis without hematuria (ICD-10 - N30.00) Oct, Multiple sclerosis stable despite (ICD-10 - G35) being off nuvigil secondary to insurance but will reorder labs as not done stable despite being off nuvigil secondary to insurance but will reorder labs as not done stable despite being off nuvigil secondary to insurance but will reorder labs as not done Oct, Pain (ICD-10 - R52) Oct, Acute cystitis resolved with ab without hematuria and is now on (ICD-10 - N30.00) macrodantin with culture pending resolved with ab and is now on macrodantin with culture pending Sep, Multiple sclerosis stable despite (ICD-10 - G35) being off nuvigil secondary to insurance but will reorder labs as not done Sep, Multiple sclerosis stable despite (ICD-10 - G35) being off nuvigil secondary to insurance but will reorder labs as not done Sep, Multiple sclerosis stable despite (ICD-10 - G35) being off nuvigil secondary to insurance but will reorder labs as not done Sep, Pain (ICD-10 - R52) Sep, Acute cystitis resolved with ab without hematuria and is now on (ICD-10 - N30.00) macrodantin with culture pending Sep, Acute cystitis resolved with ab without hematuria and is now on (ICD-10 - N30.00) macrodantin with culture pending Aug, Multiple sclerosis stable despite (ICD-10 - G35) being off nuvigil secondary to insurance Aug, Pain (ICD-10 - R52) Aug, Acute cystitis resolved with ab without hematuria and is now on (ICD-10 - N30.00) macrodantin with culture pending Aug, Multiple sclerosis (ICD-10 - G35) Aug, Pain (ICD-10 - R52) Jul, Major depressive stable disorder, single episode, unspec (ICD-10 - F32.9) Jul, Multiple sclerosis stable but has (ICD-10 - G35) been denied nuvigil and is doing ok off meds being followed by neurologist Jul, Anxiety disorder (ICD-10 - F41.9) Jul, Pain (ICD-10 - R52) Jul, Attention and concentration deficit (ICD-10 - R41.840) Jul, Acute cystitis will start on without hematuria [id number] mg (ICD-10 - N30.00) bid for ten days Jul, Major depressive disorder, single episode, unspec (ICD-10 - F32.9) Jul, Anxiety disorder (ICD-10 - F41.9) Jul, Pain (ICD-10 - R52) Jul, Attention and concentration deficit (ICD-10 - R41.840) Jun, Multiple sclerosis (ICD-10 - G35) Jun, Major depressive disorder, single episode, unspec (ICD-10 - F32.9) Jun, Anxiety disorder (ICD-10 - F41.9) Jun, Attention and concentration deficit (ICD-10 - R41.840) Jun, Multiple sclerosis For now we will (ICD-10 - G35) continue on the Copaxone therapy 20 mg injections daily. Can recheck in 6 months. If she would like to switch to oral agents, such as Tecfidera, I would be happy to go over the information. She was given the information on the Tecfidera to review. May, Multiple sclerosis (ICD-10 - G35) Dec, Multiple sclerosis We will continue (ICD-10 - G35) on the Copaxone therapy. I would be happy to recheck in 6 months. May later try to get an MRI here locally so we have a baseline. PLAN OF TREATMENT Medication Medication Name Sig Start Date Stop Date Adderall 30 MG 30 Orally Once a day for 30 days Sep, Treatment Notes Assessment Notes Clinical Notes Multiple sclerosis stable despite being off nuvigil secondary to insurance but will reorder labs as not done Attention and concentration deficit stble and working well w ith nurses and getting out of room Multiple sclerosis stable despite being off nuvigil secondary to insurance but will reorder labs as not done Multiple sclerosis stable despite being off nuvigil secondary to insurance but will reorder labs as not done Multiple sclerosis stable off nuvigil but doing well on adderal and more alert and lucid Acute cystitis without hematuria resolved after therapy with no sx off antibiotics and normal urinalysis Major depressive disorder, single improved with decreased ag itation episode, unspec and more interaction with staff Major depressive disorder, single improved with decreased ag itation episode, unspec and more interaction with staff Attention and concentration deficit doing well on adderal Attention and concentration deficit doing well on adderal Attention and concentration deficit doing well on adderal Major depressive disorder, single stable episode, unspec Attention and concentration deficit doing well on adderal Attention and concentration deficit doing well on adderal Attention and concentration deficit doing well on adderal Pain stable on meds Attention and concentration deficit stble and working well w ith nurses and getting out of room Acute cystitis without hematuria resolved with ab and is now on macrodantin with culture pending Acute cystitis without hematuria resolved after therapy with no sx off antibiotics and normal urinalysis Major depressive disorder, single stable episode, unspec Acute cystitis without hematuria will start on rx with bactr im pending results of urine culture and will discuss with nurses about prophylactic care and start on dmannose Major depressive disorder, single stable episode, unspec Major depressive disorder, single stable episode, unspec Attention and concentration deficit doing well on adderal Acute cystitis without hematuria will start on rx with bactr im pending results of urine culture and will discuss with nurses about prophylactic care and start on dmannose Major depressive disorder, single improved with decreased ag itation episode, unspec and more interaction with staff Attention and concentration deficit doing well on adderal Attention and concentration deficit doing well on adderal Attention and concentration deficit doing well on adderal Attention and concentration deficit doing well on adderal Major depressive disorder, single stable episode, unspec Major depressive disorder, single stable episode, unspec Acute cystitis without hematuria resolved with ab and is now on macrodantin with culture pending Attention and concentration deficit doing well on adderal Major depressive disorder, single improved with decreased ag itation episode, unspec and more interaction with staff Attention and concentration deficit doing well on adderal Acute cystitis without hematuria resolved with ab and is now on macrodantin with culture pending resolved with ab and is now on macrodantin with culture pending Major depressive disorder, single stable episode, unspec Attention and concentration deficit doing well on adderal Attention and concentration deficit doing well on adderal Attention and concentration deficit doing well on adderal Major depressive disorder, single improved with decreased ag itation episode, unspec and more interaction with staff Major depressive disorder, single stable episode, unspec Major depressive disorder, single stable episode, unspec Attention and concentration deficit doing well on adderal Attention and concentration deficit doing well on adderal Attention and concentration deficit doing well on adderal Major depressive disorder, single improved with decreased ag itation episode, unspec and more interaction with staff Acute cystitis without hematuria resolved with ab and is now on macrodantin with culture pending Attention and concentration deficit doing well on adderal Major depressive disorder, single stable episode, unspec Multiple sclerosis stable off nuvigil but doing well on adderal Multiple sclerosis stable with chronic chair ridden status but no change in mental confusion Multiple sclerosis stable with chronic chair ridden status but no change in mental confusion Multiple sclerosis stable with chronic chair ridden status but no change in mental confusion Multiple sclerosis stable off nuvigil but doing well on adderal but wishes to wean off next month and will discuss with staff and neurology Multiple sclerosis stable off nuvigil but doing well on adderal and more alert and lucid Acute cystitis without hematuria resolved Major depressive disorder, single improved with decreased ag itation episode, unspec and more interaction with staff Major depressive disorder, single improved with decreased ag itation episode, unspec and more interaction with staff Pain stable on meds Pain stable on meds Acute cystitis without hematuria resolved Acute cystitis without hematuria will start on rx with bactr im pending results of urine culture and will discuss with nurses about prophylactic care Acute cystitis without hematuria will start on rx with bactr im pending results of urine culture Acute cystitis without hematuria will start on rx with bactr im pending results of urine culture and will discuss with nurses about prophylactic care Attention and concentration deficit doing well on adderal Pain stable on meds Pain stable on meds Acute cystitis without hematuria will start on rx with bactr im pending results of urine culture and will discuss with nurses about prophylactic care Multiple sclerosis stable but has been denied nuvigil and is doing ok off meds being followed by neurologist Multiple sclerosis stable off nuvigil but doing well on adderal but wishes to wean off next month and will discuss with staff and neurology Multiple sclerosis stable off nuvigil but doing well on adderal but wishes to wean off next month and will discuss with staff and neurology Major depressive disorder, single improved with decreased ag itation episode, unspec and more interaction with staff Multiple sclerosis stable with chronic chair ridden status but no change in mental confusion Multiple sclerosis stable off nuvigil but doing well on adderal but wishes to wean off next month and will discuss with staff and neurology Multiple sclerosis stable with chronic chair ridden status but no change in mental confusion Attention and concentration deficit doing well on adderal Major depressive disorder, single improved with decreased ag itation episode, unspec and more interaction with staff Pain stable on meds but will attempt to wean Major depressive disorder, single improved with decreased ag itation episode, unspec and more interaction with staff Multiple sclerosis stable off nuvigil but doing well on adderal but wishes to wean off next month and will discuss with staff and neurology Acute cystitis without hematuria will start on rx with bactr im pending results of urine culture and will discuss with nurses about prophylactic care Pain stable on meds Acute cystitis without hematuria will start on rx with bactr im pending results of urine culture and will discuss with nurses about prophylactic care and start on dmannose Pain stable on meds but will attempt to wean Pain stable on meds Acute cystitis without hematuria will start on rx with bactr im pending results of urine culture and will discuss with nurses about prophylactic care and start on dmannose Pain stable on meds but will attempt to wean Pain stable on meds but will attempt to wean Multiple sclerosis stable off nuvigil but doing well on adderal but wishes to wean off next month and will discuss with staff and neurology Multiple sclerosis stable with chronic chair ridden status but no change in mental confusion Multiple sclerosis stable off nuvigil but doing well on adderal but wishes to wean off next month and will discuss with staff and neurology Multiple sclerosis stable off nuvigil but doing well on adderal but wishes to wean off next month and will discuss with staff and neurology Major depressive disorder, single improved with decreased ag itation episode, unspec and more interaction with staff Attention and concentration deficit doing well on adderal Multiple sclerosis stable with chronic chair ridden status but no change in mental confusion Major depressive disorder, single improved with decreased ag itation episode, unspec and more interaction with staff Multiple sclerosis stable with chronic chair ridden status but no change in mental confusion Multiple sclerosis stable off nuvigil but doing well on adderal but wishes to wean off next month and will discuss with staff and neurology Acute cystitis without hematuria will start on [id number] 0 mg bid for ten days Pain stable on meds but will attempt to wean Acute cystitis without hematuria resolved Acute cystitis without hematuria resolved Multiple sclerosis stable off nuvigil but doing well on adderal but wishes to wean off next month and will discuss with staff and neurology Major depressive disorder, single improved with decreased ag itation episode, unspec and more interaction with staff Multiple sclerosis stable off nuvigil but doing well on adderal and more alert and lucid Attention and concentration deficit stble and working well w ith nurses and getting out of room Attention and concentration deficit doing well on adderal Major depressive disorder, single possibly exacerbated and w ill talk episode, unspec to don about patient and need for pyschiatry to evaluate Multiple sclerosis stable off nuvigil but doing well on adderal Multiple sclerosis For now we will continue on the Copaxone therapy 20 mg injections daily. Can recheck in 6 months. If she would like to switch to oral agents, such as Tecfidera, I would be happy to go over the information. She was given the information on the Tecfidera to review. Major depressive disorder, single stable episode, unspec Multiple sclerosis stable with chronic chair ridden status but no change in mental confusion Multiple sclerosis stable off nuvigil but doing well on adderal and more alert and lucid Multiple sclerosis stable off nuvigil but doing well on adderal and more alert and lucid Major depressive disorder, single improved with decreased ag itation episode, unspec and more interaction with staff Multiple sclerosis stable off nuvigil but doing well on adderal and more alert and lucid Multiple sclerosis stable off nuvigil but doing well on adderal and more alert and lucid Multiple sclerosis stable off nuvigil but doing well on adderal but now more lethargic and may be due to meds or possible infection Major depressive disorder, single improved with decreased ag itation episode, unspec and more interaction with staff Acute cystitis without hematuria resolved Acute cystitis without hematuria resolved Acute cystitis without hematuria resolved Acute cystitis without hematuria resolved Pain stable on meds but will attempt to wean Acute cystitis without hematuria resolved Acute cystitis without hematuria resolved Acute cystitis without hematuria resolved Acute cystitis without hematuria appears to have recurred so will start on cipro 250 mg bid and obtain urine cultuire Attention and concentration deficit stble and working well w ith nurses and getting out of room Major depressive disorder, single possibly exacerbated and w ill talk episode, unspec to don about patient and need for pyschiatry to evaluate Acute cystitis without hematuria resolved Pain stable on meds but will attempt to wean Attention and concentration deficit stble and working well w ith nurses and getting out of room Multiple sclerosis stable off nuvigil but doing well on adderal Multiple sclerosis stable off nuvigil but doing well on adderal and more alert and lucid Major depressive disorder, single improved with decreased ag itation episode, unspec and more interaction with staff Major depressive disorder, single improved with decreased ag itation episode, unspec and more interaction with staff Multiple sclerosis stable despite being off nuvigil secondary to insurance Attention and concentration deficit stble and working well w ith nurses and getting out of room Major depressive disorder, single improved with decreased ag itation episode, unspec and more interaction with staff Multiple sclerosis stable off nuvigil but doing well on adderal and more alert and lucid Multiple sclerosis We will continue on the Copaxone therapy. I would be happy to recheck in 6 months. May later try to get an MRI here locally so we have a baseline. Multiple sclerosis stable despite being off nuvigil secondary to insurance but will reorder labs as not done stable despite being off nuvigil secondary to insurance but will reorder labs as not done stable despite being off nuvigil secondary to insurance but will reorder labs as not done Altered mental status, unspecified FAcility to obtain UA C&S . altered mental status type Attention and concentration deficit correction request ref ill Multiple sclerosis stable off nuvigil but doing well on adderal and more alert and lucid Attention and concentration deficit stble and working well w ith nurses and getting out of room Attention and concentration deficit stble and working well w ith nurses and getting out of room Rash of face Nursing facility to call MD/[facility] if rash does not resolve in the next 3-5 days. Major depressive disorder, single improved with decreased ag itation episode, unspec and more interaction with staff Major depressive disorder, single improved with decreased ag itation episode, unspec and more interaction with staff Attention and concentration deficit stble and working well w ith nurses and getting out of room Treatment Notes Test Name Order Date XR Chest 1 View Portable 2020-10-05 URINE CULTURE 2020-10-05 URINE CULTURE 2020-10-05 COMPREHENSIVE METABOLIC 2020-10-05 TSH-3RD GEN 2020-10-05 CBC WITH AUTOMATED DIFF 2020-10-05 COMPREHENSIVE METABOLIC 2020-10-05 URINALYSIS w/ REFLEX MICROSCOPIC 2020-10-05 COMPREHENSIVE METABOLIC 2020-10-05 TSH-3RD GEN 2020-10-05 TSH-3RD GEN 2020-10-05 URINALYSIS w/ REFLEX MICROSCOPIC 2020-10-05 CBC WITH AUTOMATED DIFF 2020-10-05 COMPREHENSIVE METABOLIC 2020-10-05 VALPROIC ACID (DEPAKENE) 2020-10-05 COMPREHENSIVE METABOLIC 2020-10-05 URINALYSIS w/ REFLEX MICROSCOPIC 2020-10-05 URINE CULTURE 2020-10-05 URINE CULTURE 2020-10-05 Referrals Referral Date Details [facility] 10/20/15, [place], [address], [place], [address], [facility] Insurance Providers Payer Name Payer Address Payer Insured Patient Coverage Cover age Phone Name Relationship to Start Date End Date Insured [employer] [address] [address] [phone] Sumit Angel (Medicaid) [place] [id number] [place] [address] Medicare [address] ATTN [phone] Sumit Angel Part B Claims [id number] [facility] [id number] Medicaid [address] [phone] Sumit Angel [facility] [id number] [id number]
--- NOTE | 2020-10-06 20:06 | PRG ---
DATE OF SERVICE: 10/05/2020 SUBJECTIVE: The patient is febrile, minimally responsive, appears to be in mild respiratory distress and is not eating. OBJECTIVE: VITAL SIGNS: With temperature of 101.4, pulse 113, respirations 22, O2 sats 96% on room air, and blood pressure 125/85. LABORATORY DATA: Shows white count 16219, hematocrit 43, hemoglobin 13. Sodium 137, potassium 4.7, chloride 103, bicarb 24, BUN 17, creatinine 0.73, glucose 108, calcium 8.4, lactic acid of 3.6. The patient is COVID positive. Chest x-ray shows questionable faint mild bibasilar infiltrate. ASSESSMENT: Unfortunate 55-year-old white female, history of multiple sclerosis, who has been found to have urinary tract infection with sepsis syndrome. She has been treated with broad-spectrum antibiotics initially and now on Rocephin, but has also been found to be COVID positive today with increased fever. Her white count initially improved, but then increased today. She has not required oxygen, however, she has been on IV fluids and not eating. PLAN: Continue support with IV Rocephin and normal saline at 75 an hour. Repeat lactate in the a.m. as well as CBC. Monitor chest x-ray and oxygen saturation. May consider treatment with steroids for possible COVID pneumonia if deteriorates. Job ID: [id number]
[2020-10-06] MEDS: cefTRIAXone\\ROCEPHIN 2 GM in Sodium Chloride 0.9% 100 ML IVPB SCH (20:08)
[2020-10-06] MEDS: Dexamethasone 4 MG TAB PO SCH (20:09)
[2020-10-06] MEDS: Diazepam 5 MG TAB PO SCH (20:09)
--- NOTE | 2020-10-06 20:24 | PRG ---
DATE OF SERVICE: 10/06/2020 SUBJECTIVE: Patient feels well baseline mental status, confused, but does recognize doctor and speaks to the doctor. She is eating much better. She is in no respiratory distress. OBJECTIVE: VITAL SIGNS: Her blood pressure is 126/53, O2 sats 99% on room air, temperature is 100.3, pulse 94, respirations 20. LUNGS: Clear. CARDIAC: Shows regular rhythm. ABDOMEN: Soft and nontender. LABORATORY DATA: Shows sodium 137, potassium 3.4, chloride 108, bicarb 24, BUN 13, creatinine 0.72. Urinalysis, as mentioned above, shows 21 to 50 white cells. White count is improved and lactic acid has improved also to 1.1. ASSESSMENT: 1. Resolving urosepsis secondary to Klebsiella, on IV Rocephin. 2. COVID-19 infection with no evidence of pneumonia, with normal oxygenation, minimal infiltrate, and we will monitor closely, but we will start on Decadron 6 mg twice daily because of fragile nature. The patient has ongoing sepsis. Job ID: [id number]
[2020-10-07] MEDS: Sodium Chloride 0.9% 1,000 ML IV SCH ×2 (04:36→18:36)
[2020-10-07] MEDS: Enoxaparin Sodium 40 MG/0.4 ML SYRINGE SC SCH (08:38)
[2020-10-07] MEDS: Famotidine/PF 20 mg/2ml Vial SLOW IVP SCH ×2 (08:38→20:22)
[2020-10-07] MEDS: Dexamethasone 4 MG TAB PO SCH ×2 (08:40→20:22)
[2020-10-07] MEDS: DULoxetine 30 MG CAP PO SCH (08:40)
[2020-10-07] MEDS: Baclofen 10 MG TAB PO SCH ×3 (08:40→20:22)
[2020-10-07] MEDS: CeleCOXIB 100 MG CAP PO SCH (08:41)
[2020-10-07] MEDS: busPIRone HCl 5 MG TAB PO SCH ×3 (08:41→20:22)
[2020-10-07] MEDS: Oxybutynin 5 MG TAB PO SCH (08:42)
[2020-10-07] MEDS: ADDERALL 30 MG PO SCH (08:45)
[2020-10-07] MEDS: COPAXONE 20 MG SC SCH (08:45)
[2020-10-07] MEDS: CRANBERRY PLUS VITAMIN C SFTGL PO SCH (08:46)
--- NOTE | 2020-10-07 18:39 | PRG ---
DATE OF SERVICE: SUBJECTIVE: Patient is awake and alert, confused and babbling but does appear to know the physician, appears to be in no distress. OBJECTIVE: VITAL SIGNS: Blood pressure is 136/58, O2 sats 98% on room air, respirations 18, pulse 66, and afebrile. LUNGS: Clear. CARDIAC EXAMINATION: Shows regular rhythm. ABDOMEN: Obese and nontender. ASSESSMENT: 1. Resolving urinary tract infection and sepsis syndrome secondary to Escherichia coli, on Rocephin. 2. COVID-19 infection with no evidence of pneumonia with no hypoxemia or pulmonary infiltrate. 3. Multiple sclerosis, stable. 4. 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 PLAN: 1. Continue IV Rocephin. 2. Continue to monitor for decompensation of respiratory status in a COVID patient. 3. Decrease IV to 50 mL an hour as patient is doing well. 4. Continue Decadron 6 mg every 12 hours for a full 5-day course, to finish on September. Job ID: [id number]
[2020-10-07] MEDS: cefTRIAXone\\ROCEPHIN 2 GM in Sodium Chloride 0.9% 100 ML IVPB SCH (20:20)
[2020-10-07] MEDS: Diazepam 5 MG TAB PO SCH (20:22)
[2020-10-08] MEDS: Sodium Chloride 0.9% 1,000 ML IV SCH (05:59)
[2020-10-08] MEDS: Baclofen 10 MG TAB PO SCH (08:16)
[2020-10-08] MEDS: busPIRone HCl 5 MG TAB PO SCH (08:17)
[2020-10-08] MEDS: CeleCOXIB 100 MG CAP PO SCH (08:18)
[2020-10-08] MEDS: Dexamethasone 4 MG TAB PO SCH (08:18)
[2020-10-08] MEDS: DULoxetine 30 MG CAP PO SCH (08:19)
[2020-10-08] MEDS: Enoxaparin Sodium 40 MG/0.4 ML SYRINGE SC SCH (08:19)
[2020-10-08] MEDS: Famotidine/PF 20 mg/2ml Vial SLOW IVP SCH (08:19)
[2020-10-08] MEDS: ADDERALL 30 MG PO SCH (08:20)
[2020-10-08] MEDS: COPAXONE 20 MG SC SCH (08:20)
[2020-10-08] MEDS: Oxybutynin 5 MG TAB PO SCH (08:20)
[2020-10-08] MEDS: CRANBERRY PLUS VITAMIN C SFTGL PO SCH (08:21)
[2020-10-08 08:31] VITALS: BP 130/58; TEMP 98.1
[2020-10-09] MEDS ORDERED: TOLTERODINE TARTRATE 4 MG PO SCH (09:00)
--- NOTE | 2020-10-10 11:09 | DIS ---
DATE OF ADMISSION: 10/04/2020 DATE OF DISCHARGE: 10/08/2020 ADMIT DIAGNOSIS: Sepsis secondary to urinary tract infection. SECONDARY DIAGNOSES: COVID positive, multiple sclerosis. HISTORY OF PRESENT ILLNESS: A 55-year-old female with past medical history of multiple sclerosis, progressive dementia, and recurrent UTIs, who presented to [facility] for altered mental status and fever. The patient was diagnosed with UTI, had elevated lactate of 3.4. Chest x-ray was clear. O2 saturations were normal. The patient was admitted and started on IV Rocephin. The patient had temperature of 102 with foul-smelling urine, decreased mental status. HOSPITAL COURSE: The patient has improved overall. During her hospital course, she was continued on IV Rocephin throughout her stay. The patient's COVID-19 test did come back positive, but has displayed no symptoms of this infection. The patient's vital signs have remained stable throughout her stay. However, she is requiring continued PT and OT services and will be admitted here at [facility] for swing bed for continued PT and OT services. SIGNIFICANT LAB WORK: White cells trended 12.3 to 21.7 down to 11.8. Patient's H and H are been stable at 13.1, 13.4, 41.9, 43.2. Platelet count 133, 77, 112. Patient's sodium and potassium have been unremarkable as well as her BUN, creatinine. The patient's glucose has been elevated, but has been covered. The patient's urinalysis taken on 10/04 showed urine protein of 30, ketones trace, nitrite positive, large leukocyte esterase, white cells 21 to 50, bacteria 4+. The patient did have COVID positive test. CONSULTATIONS: None. RADIOLOGY: None. PROCEDURES: None. DISPOSITION: Patient will be swung to snf bed today. She will remain here at [facility] for continued PT and OT services. Discharge medications will remain the same from this stay to the snf stay as she will remain in the same facility here. We will continue to follow her as a snf patient with continued PT and OT services. Job ID: [id number]
== END 2020-10-08 11:12 | disposition swing bed (61) | DRG 871 ==
LOC: NAV ERS 19:29 → NAV ACUTE 22:54
PROVIDERS: ADMIT Internal Medicine; ATTEND Internal Medicine
PROC: 8E0ZXY6 Isolation (ICD-10-PCS; principal; 2020-10-04)
DX: A41.51 Sepsis due to Escherichia coli [E. coli] (principal); U07.1 COVID-19; N39.0 Urinary tract infection, site not specified; G35 Multiple sclerosis; F03.90 Unspecified dementia, unspecified severity, without behavioral disturbance, psychotic disturbance, mood disturbance, and anxiety; K21.9 Gastro-esophageal reflux disease without esophagitis; M19.90 Unspecified osteoarthritis, unspecified site; Z79.899 Other long term (current) drug therapy
CPT/HCPCS: 51701; 71045; 80048; 80053; 81003; 81015; 83605; 85025; 85379; 87040; 87077; 87086; 87186; 87635; 96365; 96367; J0696; J1650; J2543; J3370; J3490; J7030; J7050; J8540; S0028; U0003

== ENCOUNTER 2020-10-08 11:16 | Inpatient (IN) | payer MEDICARE, MEDICAID ==
[2020-10-08] MEDS ORDERED: Acetaminophen 325 MG TAB PO PRN ×2 (12:11→12:19)
[2020-10-08] MEDS ORDERED: Ondansetron PF 4 MG/2 ML Vial IVP PRN (12:11)
[2020-10-08] MEDS ORDERED: cefTRIAXone\\ROCEPHIN 2 GM VIAL IVPB SCH (12:15)
[2020-10-08] MEDS ORDERED: Ondansetron ODT 4 MG TAB PO PRN (12:19)
[2020-10-08] MEDS ORDERED: cefTRIAXone\\ROCEPHIN 2 GM in Sodium Chloride 0.9% 100 ML IVPB SCH (13:00)
[2020-10-08] MEDS: Baclofen 10 MG TAB PO SCH ×2 (15:53→20:09)
[2020-10-08] MEDS: busPIRone HCl 5 MG TAB PO SCH ×2 (15:53→20:09)
[2020-10-08] MEDS: Diazepam 5 MG TAB PO SCH (20:10)
[2020-10-08] MEDS: Dexamethasone 4 MG TAB PO SCH (20:10)
[2020-10-08] MEDS: Famotidine 20 MG TAB PO SCH (20:10)
[2020-10-08] MEDS: cefTRIAXone\\ROCEPHIN 2 GM in Sodium Chloride 0.9% 100 ML IVPB SCH (20:20)
[2020-10-09 06:30] VITALS: BMI 30.5
[2020-10-09] MEDS ORDERED: Enoxaparin Sodium 40 MG/0.4 ML SYRINGE SC SCH (09:00)
[2020-10-09] MEDS ORDERED: Trospium 20 MG TAB PO SCH (09:00)
[2020-10-09] MEDS ORDERED: AMOXicillin 500 MG CAP PO SCH (09:00)
[2020-10-09] MEDS: Sodium Chloride 0.9% 1,000 ML IV SCH (09:34)
[2020-10-09] MEDS: Baclofen 10 MG TAB PO SCH ×3 (09:34→21:56)
[2020-10-09] MEDS: busPIRone HCl 5 MG TAB PO SCH ×3 (09:35→21:57)
[2020-10-09] MEDS: CeleCOXIB 100 MG CAP PO SCH (09:35)
[2020-10-09] MEDS: Dexamethasone 4 MG TAB PO SCH ×2 (09:35→21:57)
[2020-10-09] MEDS: DULoxetine 30 MG CAP PO SCH (09:36)
[2020-10-09] MEDS: Famotidine 20 MG TAB PO SCH ×2 (09:36→21:58)
[2020-10-09] MEDS: Enoxaparin Sodium 40 MG/0.4 ML SYRINGE SC SCH (09:36)
[2020-10-09] MEDS: Oxybutynin 5 MG TAB PO SCH (09:36)
[2020-10-09] MEDS ORDERED: Diazepam 2 MG TAB PO PRN (09:43)
--- NOTE | 2020-10-09 09:49 | HP ---
HISTORY OF PRESENT ILLNESS: A 55-year-old female with a history of multiple sclerosis, progressive dementia, and recurrent UTIs, who originally presented to [facility] with mental status and fever. Chest x-ray was clear. O2 saturations and blood pressure were normal. However, COVID test did come back positive. During her stay, the patient also was diagnosed with UTI with elevated lactate of 3.4. The patient was started on Rocephin and fluids and continued on these throughout her hospital stay. The patient progressed well throughout her stay and participated in physical therapy, however, required further physical therapy and occupational therapy and has been swung to a half-way bed here at [facility]. REVIEW OF SYSTEMS: Reports cough. Denies any shortness of breath, nausea, vomiting, diarrhea, abdominal pain. Review of systems is limited due to her dementia and is taken from nursing staff. OBJECTIVE: GENERAL: A 55-year-old white female, lying in bed, in no acute respiratory distress. HEENT: Pupils round, reactive to light and accommodation. Sclerae anicteric. Conjunctivae within normal limits. NECK: Supple. No thyromegaly. HEART: Regular rate and rhythm. No murmurs, gallops, or rubs. LUNGS: Clear to auscultation bilaterally. No wheezes. ABDOMEN: Soft, nontender to palpation. Obese. Bowel sounds present in all 4 quadrants. VITAL SIGNS: Temperature 98.1, pulse 47, respiratory rate 18, O2 sats 96% on room air. BP range 148/65 to 131/61. LABORATORY DATA: No new labs today. ASSESSMENT: 1. Resolving urinary tract infection with sepsis secondary to Escherichia coli. The patient is on Rocephin at this time. 2. COVID-19 infection with no evidence of pneumonia with no hypoxemia or pulmonary infiltrate. 3. Multiple sclerosis, stable. 4. 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 PLAN: 1. Continue IV Rocephin and continue to monitor for decompensation of respiratory status as the patient is a COVID patient. 2. Continue IV normal saline at 50 mL/h. 3. Continue Decadron. 4. Consult PT and OT. 5. Discharge planning. 6. Fall precautions. 7. Continue to monitor for any decompensation. Job ID: [id number]
[2020-10-09] MEDS: cefTRIAXone\\ROCEPHIN 2 GM in Sodium Chloride 0.9% 100 ML IVPB SCH (21:55)
[2020-10-09] MEDS: Diazepam 5 MG TAB PO SCH (21:57)
[2020-10-10] MEDS: Sodium Chloride 0.9% 1,000 ML IV SCH (01:47)
[2020-10-10] MEDS: Oxybutynin 5 MG TAB PO SCH (08:09)
[2020-10-10] MEDS: Dexamethasone 4 MG TAB PO SCH ×2 (08:10→20:52)
[2020-10-10] MEDS: Baclofen 10 MG TAB PO SCH ×3 (08:10→20:52)
[2020-10-10] MEDS: Famotidine 20 MG TAB PO SCH ×2 (08:11→20:53)
[2020-10-10] MEDS: DULoxetine 30 MG CAP PO SCH (08:11)
[2020-10-10] MEDS: CeleCOXIB 100 MG CAP PO SCH (08:11)
[2020-10-10] MEDS: Enoxaparin Sodium 40 MG/0.4 ML SYRINGE SC SCH (08:11)
[2020-10-10] MEDS: busPIRone HCl 5 MG TAB PO SCH ×3 (08:12→20:52)
[2020-10-10] MEDS: ASCORBIC ACID PO SCH ×2 (12:37→13:15)
[2020-10-10] MEDS: CRANBERRY PO SCH ×2 (12:37→13:15)
[2020-10-10] MEDS ORDERED: Amlodipine 5 MG TAB PO SCH (13:45)
[2020-10-10] MEDS: Diazepam 5 MG TAB PO SCH (20:52)
[2020-10-10] MEDS: cefTRIAXone\\ROCEPHIN 2 GM in Sodium Chloride 0.9% 100 ML IVPB SCH (21:15)
--- NOTE | 2020-10-11 05:56 | PRG ---
DATE OF SERVICE: 10/10/2020 SUBJECTIVE: Patient awake and alert, at her baseline mental status, in no distress. Smiling and cheerful, confused, but does know who the provider is. OBJECTIVE: VITAL SIGNS: Temperature is 97.2, pulse 73, respirations 20, O2 saturations 95% on room air. Blood pressure was elevated to 186/90 earlier in the day requiring 2.5 mg of amlodipine, but now is 109/68. LUNGS: Clear. CARDIAC: Shows regular rhythm. Urine culture did show E coli sensitive to the Rocephin the patient is on. ASSESSMENT: 1. Resolving E coli urinary tract infection. 2. Resolving COVID-19 infection. 3. Stable multiple sclerosis. 4. Stable dementia. PLAN: 1. Finish 5-day course of dexamethasone tomorrow. 2. Continue Rocephin for full 7-day course of antibiotics to finish on October 13. 3. Continue regular diet. 4. Continue chronic oxybutynin and Copaxone and Depakote. 5. Discharge to snf after Rocephin finished. Job ID: [id number]
[2020-10-11] MEDS: Enoxaparin Sodium 40 MG/0.4 ML SYRINGE SC SCH (08:35)
[2020-10-11] MEDS: Dexamethasone 4 MG TAB PO SCH ×2 (08:35→21:01)
[2020-10-11] MEDS: busPIRone HCl 5 MG TAB PO SCH ×3 (08:38→21:00)
[2020-10-11] MEDS: Famotidine 20 MG TAB PO SCH ×2 (08:38→21:00)
[2020-10-11] MEDS: Oxybutynin 5 MG TAB PO SCH (08:38)
[2020-10-11] MEDS: Baclofen 10 MG TAB PO SCH ×3 (08:38→21:00)
[2020-10-11] MEDS: DULoxetine 30 MG CAP PO SCH (08:38)
[2020-10-11] MEDS: CeleCOXIB 100 MG CAP PO SCH (08:44)
[2020-10-11] MEDS: CRANBERRY PO SCH (09:00)
[2020-10-11] MEDS: GLATIRAMER ACETATE 40 MG/ML SC SCH (09:00)
[2020-10-11] MEDS: ASCORBIC ACID PO SCH (09:00)
[2020-10-11] MEDS ORDERED: Ondansetron ODT 4 MG TAB SL PRN (10:45)
[2020-10-11] MEDS: Diazepam 5 MG TAB PO SCH (20:59)
[2020-10-11] MEDS: cefTRIAXone\\ROCEPHIN 2 GM in Sodium Chloride 0.9% 100 ML IVPB SCH (21:00)
--- NOTE | 2020-10-12 06:49 | PRG ---
DATE OF SERVICE: 10/11/2020 SUBJECTIVE: The patient is lying in bed, alert, cheerful, baseline mental status. No respiratory distress. States that she is ready to go back to the [facility] and does recognize physician. OBJECTIVE: The patient is eating well with no cough, shortness of breath. VITAL SIGNS: Showed to have temperature of 98.6, pulse 57, respirations 18, O2 sats 96% on room air, blood pressure 127/64. LUNGS: Clear. CARDIAC EXAMINATION: Showed regular rhythm. ABDOMEN: Soft and nontender. SKIN/EXTREMITIES: Showed no edema. ASSESSMENT: 1. Resolving Escherichia coli urinary tract infection with 7-day course of Rocephin, finish on October 13. 2. Resolving COVID-19 infection with a 5-day course of dexamethasone finished and no fever or symptoms for three days. 3. Stable multiple sclerosis. 4. Stable dementia. PLAN: 1. Continue IV Rocephin until October 13 and stable to be transferred back to [facility] at that time as the patient at that time will have been five days without symptoms and therapy. 2. Continue regular diet. There is no evidence of cough or aspiration. 3. Continue chronic Copaxone for multiple sclerosis and Depakote for seizure prophylaxis. Job ID: [id number]
[2020-10-12] MEDS: Baclofen 10 MG TAB PO SCH ×3 (08:02→21:35)
[2020-10-12] MEDS: Oxybutynin 5 MG TAB PO SCH (08:02)
[2020-10-12] MEDS: DULoxetine 30 MG CAP PO SCH (08:02)
[2020-10-12] MEDS: CRANBERRY PO SCH (08:03)
[2020-10-12] MEDS: CeleCOXIB 100 MG CAP PO SCH (08:03)
[2020-10-12] MEDS: ASCORBIC ACID PO SCH (08:03)
[2020-10-12] MEDS: Enoxaparin Sodium 40 MG/0.4 ML SYRINGE SC SCH (08:04)
[2020-10-12] MEDS: busPIRone HCl 5 MG TAB PO SCH ×3 (08:04→21:36)
[2020-10-12] MEDS: Famotidine 20 MG TAB PO SCH ×2 (08:05→21:35)
[2020-10-12] MEDS: GLATIRAMER ACETATE 40 MG/ML SC SCH (08:05)
--- NOTE | 2020-10-12 21:22 | PRG ---
DATE OF SERVICE: 10/12/2020 SUBJECTIVE: The patient is a 55-year-old female here for long-term antibiotics requiring inpatient physical therapy and occupational therapy. Today, she is doing well, lying in bed in no respiratory distress. OBJECTIVE: VITAL SIGNS: Temperature 96.5 respiratory rate 18, O2 sats 96% on room air, blood [id number] with a blood pressure down to 109/68. LUNGS: Clear to auscultation bilaterally. CARDIOVASCULAR: Regular rate and rhythm. No murmurs, gallops, or rubs. ABDOMEN: Soft, nontender to palpation. No masses. EXTREMITIES: Showed no edema. ASSESSMENT: 1. Resolving Escherichia coli urinary tract infection with 7-day course of Rocephin, finishing on October 13. 2. Resolving COVID infection. 3. Stable multiple sclerosis. 4. Stable dementia. PLAN: 1. We will continue IV Rocephin until tomorrow and if stable, the patient can be transferred back to [facility] as it has been 5 days without symptoms or therapy for COVID. 2. Continue regular diet. 3. Continue chronic Copaxone for multiple sclerosis and Depakote for seizure prophylaxis. Job ID: [id number] [facility]
[2020-10-12] MEDS: Diazepam 5 MG TAB PO SCH (21:35)
[2020-10-12] MEDS: cefTRIAXone\\ROCEPHIN 2 GM in Sodium Chloride 0.9% 100 ML IVPB SCH (21:37)
[2020-10-13] MEDS: busPIRone HCl 5 MG TAB PO SCH ×3 (08:35→20:35)
[2020-10-13] MEDS: Baclofen 10 MG TAB PO SCH ×3 (08:35→20:35)
[2020-10-13] MEDS: CeleCOXIB 100 MG CAP PO SCH (08:35)
[2020-10-13] MEDS: Enoxaparin Sodium 40 MG/0.4 ML SYRINGE SC SCH (08:36)
[2020-10-13] MEDS: CRANBERRY PO SCH (08:36)
[2020-10-13] MEDS: ASCORBIC ACID PO SCH (08:36)
[2020-10-13] MEDS: DULoxetine 30 MG CAP PO SCH (08:36)
[2020-10-13] MEDS: GLATIRAMER ACETATE 40 MG/ML SC SCH (08:37)
[2020-10-13] MEDS: Oxybutynin 5 MG TAB PO SCH (08:37)
[2020-10-13] MEDS: Famotidine 20 MG TAB PO SCH ×2 (08:37→20:34)
--- NOTE | 2020-10-13 16:26 | PRG ---
DATE OF SERVICE: 10/13/2020 SUBJECTIVE: Ms. Angel is resting comfortably in bed and denies any concerns. OBJECTIVE: VITAL SIGNS: She is afebrile. Heart rate 76, respirations 20, oxygen saturation 98% on room air, blood pressure 96/57. CARDIOVASCULAR SYSTEM: S1 and S2 plus. RESPIRATORY SYSTEM: Normal vesicular breath sounds. ABDOMEN: Soft and nontender. Bowel sounds heard in all quadrants. EXTREMITIES: Without cyanosis or clubbing. CENTRAL NERVOUS SYSTEM: Cognitive deficits and evidence for multiple sclerosis, otherwise nonfocal. IMPRESSION: 1. Resolving Escherichia coli urinary tract infection. 2. COVID-19 infection, asymptomatic. 3. Multiple sclerosis. 4. Dementia. 5. Deconditioning. PLAN: 1. Continue current medications. She finishes her antibiotics today. We will discharge her back to the [facility] tomorrow as it will be 10 days from her testing. 2. Nutritional support. 3. DVT prophylaxis. 4. Decubitus precautions. 5. Discussed with the patient in detail. All questions answered. Job ID: [id number]
[2020-10-13] MEDS: cefTRIAXone\\ROCEPHIN 2 GM in Sodium Chloride 0.9% 100 ML IVPB SCH (20:33)
[2020-10-13] MEDS: Diazepam 5 MG TAB PO SCH (20:35)
[2020-10-14] MEDS: Enoxaparin Sodium 40 MG/0.4 ML SYRINGE SC SCH (09:20)
[2020-10-14] MEDS: CeleCOXIB 100 MG CAP PO SCH (09:21)
[2020-10-14] MEDS: Baclofen 10 MG TAB PO SCH (09:21)
[2020-10-14] MEDS: DULoxetine 30 MG CAP PO SCH (09:21)
[2020-10-14] MEDS: Oxybutynin 5 MG TAB PO SCH (09:21)
[2020-10-14] MEDS: busPIRone HCl 5 MG TAB PO SCH (09:21)
[2020-10-14] MEDS: Famotidine 20 MG TAB PO SCH (09:21)
[2020-10-14] MEDS: CRANBERRY PO SCH (09:22)
[2020-10-14] MEDS: ASCORBIC ACID PO SCH (09:22)
[2020-10-14] MEDS: GLATIRAMER ACETATE 40 MG/ML SC SCH (09:22)
[2020-10-14 10:01] VITALS: BP 123/67; TEMP 96.2
--- NOTE | 2020-10-15 18:59 | DIS ---
DATE OF ADMISSION: 10/08/2020 DATE OF DISCHARGE: 10/14/2020 PRINCIPAL DIAGNOSES: 1. Resolved Escherichia coli urinary tract infection. 2. COVID-19 infection, finished 10 days of quarantine. 3. Multiple sclerosis. 4. Dementia. 5. Deconditioning. COMPLICATIONS: None. ADVERSE REACTIONS: None. PROCEDURES: None. CONSULTATIONS: None. HOSPITAL COURSE: The patient was admitted by Dr. Gasca on October 09 with COVID-19 infection and E. coli UTI. She was treated with IV antibiotics and transferred from acute floor to [facility]. She has finished her duration of antibiotics. She has remained asymptomatic from the COVID-19 infection and has finished her 10 days of quarantine and she was felt to be stable to transfer back to her snf. No changes in her medications. DISCHARGE PHYSICAL EXAMINATION: VITAL SIGNS: On the day of discharge, she is afebrile, heart rate 69, respirations 20, oxygen saturation 97% on room air, blood pressure 123/67. CARDIOVASCULAR SYSTEM: S1-S2 plus. RESPIRATORY SYSTEM: Normal vesicular breath sounds. ABDOMEN: Soft, nontender. Bowel sounds heard in all quadrants. EXTREMITIES: Without cyanosis or clubbing. CENTRAL NERVOUS SYSTEM: Generalized weakness. DISCHARGE MEDICATIONS: Same as admission and they are; 1. Tylenol 650 p.o. q.4 p.r.n. 2. Discontinue amlodipine and Norvasc. 3. Baclofen 20 mg t.i.d. 4. BuSpar 5 mg t.i.d. 5. Celebrex 200 mg daily. 6. Adderall 30 mg daily. 7. Valium 5 mg at bedtime. 8. Depakote ER 500 mg at bedtime. 9. Duloxetine 60 mg daily. 10. Pepcid 20 mg b.i.d. 11. Copaxone injection 20 mg subcu daily. 12. Oxybutynin 5 mg daily. 13. Detrol LA 4 mg daily. I am not sure why she is on both oxybutynin and Detrol LA. ACTIVITY: As tolerated. She will be followed by Dr. Cortes in the nursing facility. Heart-healthy diet. For full details, please see chart. TIME SPENT: Total time spent on this discharge 35 minutes. Job ID: [id number]
== END 2020-10-14 11:00 | DRG 871 ==
LOC: NAV ACUTE 11:16
PROVIDERS: ADMIT Internal Medicine; ATTEND Internal Medicine
DX: A41.51 Sepsis due to Escherichia coli [E. coli] (principal); U07.1 COVID-19; N39.0 Urinary tract infection, site not specified; F03.90 Unspecified dementia, unspecified severity, without behavioral disturbance, psychotic disturbance, mood disturbance, and anxiety; G35 Multiple sclerosis; B96.20 Unspecified Escherichia coli [E. coli] as the cause of diseases classified elsewhere; R53.81 Other malaise
CPT/HCPCS: J0696; J1650; J3490; J7050; J8540

== ENCOUNTER 2021-11-02 18:32 | Emergency (ER) | payer MEDICARE, MEDICAID ==
[2021-11-02 19:01] LABS: Bilirubin Negative (Negative); Blood, Urine Negative (Negative); Glucose, Urine (Dipstick) Negative (Negative); Ketone, Urine Negative (Negative); Leukocyte Moderate (Negative); Nitrite Positive (Negative); Protein, Urine (Dipstick) Negative (Neg-Trace); Specific Gravity, Urine 1.025 (1.005-1.030); pH, Urine 6.5 (5.0-9.0)
[2021-11-02] MEDS ORDERED: Sodium Chloride 0.9% 1,000 ML ONE (19:13)
[2021-11-02] MEDS ORDERED: Morphine 4 MG/ML VIAL ONE (19:13)
[2021-11-02] MEDS ORDERED: Ondansetron PF 4 MG/2 ML Vial ONE (19:13)
[2021-11-02 19:15] LABS: Clarity Hazy (Clear); RBC/HPF 0-3 HPF (0-3); Squamous Epithelial 0-3 HPF (0-3); WBC/HPF Greater Than 50 HPF (0-3)
[2021-11-02 19:16] LABS: Bacteria/HPF 4+ HPF (None Seen)
[2021-11-02 19:36] LABS: #Basophils 0.1 thou/uL (0.0-0.2); #Eosinphils 0.3 thou/uL (0.0-0.7); #Lymphocytes 3.3 thou/uL (1.20-3.40); #Monocytes 0.6 thou/uL (0.11-0.59); #Neutrophils 4.4 thou/uL (1.40-6.50); %Basophils 1.1 % (0.0-1.0); %Lymphocytes 38.2 % (21.0-51.0); %Monocytes 6.9 % (0.0-10.0); %Neutrophils 50.9 % (42.0-75.0); Hemoglobin 14.2 g/dL (12.0-16.0); Mean Corpuscular HGB CONC 31.2 g/dL (32.0-36.0); Mean Corpuscular Hemoglobin 27.9 pg (27.0-31.0); Mean Corpuscular Volume 89.4 fL (78.0-98.0); Mean Platelet Volume 10.5 fL (7.4-10.4); Platelet Count 228 thou/uL (130-400); RBC Distribution Width 14.5 % (11.5-14.5); Red Blood Cell (RBC) Count 5.07 mill/uL (4.20-5.40); White Blood Cell (WBC) Count 8.6 thou/uL (4.8-10.8)
[2021-11-02] MEDS ORDERED: cefTRIAXone\\ROCEPHIN 2 GM VIAL ONE (19:58)
[2021-11-02] MEDS ORDERED: Sodium Chloride 0.9% 100 ML ONE (19:58)
[2021-11-02 20:05] LABS: ALT (SGPT) 16 U/L (8-55); AST (SGOT) 14 U/L (5-34); Albumin 3.6 g/dL (3.5-5.0); Alkaline Phosphatase 64 U/L (40-110); Anion Gap 11 mmol/L (10-20); BUN (Urea Nitrogen) 17 mg/dL (9.8-20.1); Bilirubin, Total 0.3 mg/dL (0.2-1.2); Calc. Creatinine Clearance 0 mL/min (70-130); Calcium 9.3 mg/dL (7.8-10.44); Carbon Dioxide 28 mmol/L (22-29); Chloride 104 mmol/L (98-107); Globulin 2.8 g/dL (2.4-3.5); Glucose 98 mg/dL (70-105); Lipase 44 U/L (8-78); Potassium 4.2 mmol/L (3.5-5.1); Protein, Total 6.4 g/dL (6.0-8.3); Sodium 139 mmol/L (136-145)
== END 2021-11-02 22:25 ==
LOC: NAV ERS 18:32
DX: G89.29 Other chronic pain (principal); M54.9 Dorsalgia, unspecified; N30.00 Acute cystitis without hematuria; K21.9 Gastro-esophageal reflux disease without esophagitis; M19.90 Unspecified osteoarthritis, unspecified site; Z79.899 Other long term (current) drug therapy
CPT/HCPCS: 51701; 74176; 80053; 81003; 81015; 83605; 83690; 85025; 87077; 87086; 87186; 96365; 96375; J0696; J2270; J2405; J3490; J7050

== ENCOUNTER 2023-04-12 15:23 | Observation (INO) | payer MEDICARE, MEDICAID ==
[2023-04-12] MEDS ORDERED: Ondansetron PF 4 MG/2 ML Vial ONE (16:11)
[2023-04-12] MEDS ORDERED: Pantoprazole 40 MG VIAL ONE (16:11)
[2023-04-12] MEDS ORDERED: Sodium Chloride 0.9% 1,000 ML ONE (16:11)
[2023-04-12 16:33] LABS: #Lymphocytes 2.4 thou/uL (1.20-3.40); #Neutrophils 3.6 thou/uL (1.40-6.50); %Basophils 1.4 % (0.0-1.0); %Eosinophils 2.1 % (0.0-10.0); %Lymphocytes 34.3 % (21.0-51.0); %Monocytes 9.1 % (0.0-10.0); %Neutrophils 53.2 % (42.0-75.0); Hemoglobin 13.4 g/dL (12.0-16.0); Mean Corpuscular HGB CONC 30.3 g/dL (32.0-36.0); Mean Corpuscular Hemoglobin 25.9 pg (27.0-31.0); Mean Corpuscular Volume 85.5 fl (78.0-98.0); Platelet Count 179 10x3/uL (130-400); RBC Distribution Width 14.2 % (11.5-14.5); Red Blood Cell (RBC) Count 5.18 mill/uL (4.20-5.40); White Blood Cell (WBC) Count 6.9 10x3/uL (4.8-10.8)
[2023-04-12 16:34] LABS: #Basophils 0.1 thou/uL (0.0-0.2); #Eosinphils 0.1 thou/uL (0.0-0.7); #Monocytes 0.6 thou/uL (0.11-0.59)
[2023-04-12 16:46] LABS: ALT (SGPT) 23 U/L (8-55); AST (SGOT) 34 U/L (5-34); Albumin 3.4 g/dL (3.5-5.0); Alkaline Phosphatase 69 U/L (40-110); Anion Gap 18 mmol/L (10-20); BUN (Urea Nitrogen) 12 mg/dL (9.8-20.1); Bilirubin, Total 0.5 mg/dL (0.2-1.2); Calc. Creatinine Clearance 0 mL/min (70-130); Carbon Dioxide 24 mmol/L (22-29); Chloride 103 mmol/L (98-107); Estimated GFR 91; Globulin 3.3 g/dL (2.4-3.5); Glucose 115 mg/dL (70-105); Lipase 66 U/L (8-78); Potassium 4.8 mmol/L (3.5-5.1); Protein, Total 6.7 g/dL (6.0-8.3); Sodium 140 mmol/L (136-145)
[2023-04-12 17:01] LABS: Bilirubin Negative (Negative); Blood, Urine Large (Negative); Clarity Turbid (Clear); Glucose, Urine (Dipstick) Negative (Negative); Ketone, Urine Trace mg/dL (Negative); Leukocyte Large (Negative); Nitrite Negative (Negative); Protein, Urine (Dipstick) 100 mg/dL (Neg-Trace); Specific Gravity, Urine 1.025 (1.005-1.030); Urobilinogen > or = 8.0 mg/dL (Less than 2); pH, Urine 6.5 (5.0-9.0)
[2023-04-12 17:02] LABS: Bacteria/HPF 4+ HPF (None Seen); RBC/HPF Greater than 50 HPF (0-3); Squamous Epithelial 0-3 HPF (0-3); Transitional Epithelial Greater than 50 HPF (None Seen); WBC/HPF Greater Than 50 HPF (0-3); Yeast-Budding 2+ HPF (None Seen)
[2023-04-12] MEDS ORDERED: Sodium Chloride 0.9% 100 ML ONE (17:13)
[2023-04-12] MEDS ORDERED: cefTRIAXone (ROCEPHIN) 2 GM VIAL ONE (17:13)
[2023-04-12] MEDS ORDERED: Senokot S 8.6-50 MG TAB PO PRN (20:28)
[2023-04-12] MEDS ORDERED: Ondansetron ODT 4 MG TAB SL PRN (20:28)
[2023-04-12] MEDS ORDERED: Acetaminophen 325 MG TAB PO PRN (20:28)
[2023-04-12] MEDS ORDERED: Nystatin Powder 15 GM BOT TOP PRN (21:07)
[2023-04-12] MEDS ORDERED: Promethazine HCl 25 MG/ML VIAL IM PRN (21:08)
[2023-04-12 21:30] VITALS: BMI 26.8
[2023-04-12] MEDS ORDERED: cefTRIAXone\\ROCEPHIN 1 GM in Sodium Chloride 0.9% 100 ML IVPB SCH (22:00)
[2023-04-12] MEDS: Sodium Chloride 0.9% 1,000 ML IV SCH (22:20)
[2023-04-12] MEDS: Nystatin Powder 15 GM BOT TOP SCH (22:29)
[2023-04-13] MEDS: Pantoprazole 40 MG VIAL IVP SCH (08:57)
[2023-04-13 09:07] LABS: #Eosinphils 0.1 thou/uL (0.0-0.7); #Lymphocytes 2.3 thou/uL (1.20-3.40); #Monocytes 0.8 thou/uL (0.11-0.59); #Neutrophils 3.3 thou/uL (1.40-6.50); %Basophils 0.6 % (0.0-1.0); %Eosinophils 2.3 % (0.0-10.0); %Monocytes 12.1 % (0.0-10.0); Hemoglobin 12.5 g/dL (12.0-16.0); Mean Corpuscular HGB CONC 30.2 g/dL (32.0-36.0); Mean Corpuscular Hemoglobin 26.1 pg (27.0-31.0); Mean Corpuscular Volume 86.2 fl (78.0-98.0); Mean Platelet Volume 8.4 fL (7.4-10.4); Platelet Count 126 10x3/uL (130-400); RBC Distribution Width 14.5 % (11.5-14.5); Red Blood Cell (RBC) Count 4.81 mill/uL (4.20-5.40); White Blood Cell (WBC) Count 6.6 10x3/uL (4.8-10.8)
[2023-04-13 09:20] LABS: ALT (SGPT) 19 U/L (8-55); AST (SGOT) 22 U/L (5-34); Albumin 3.1 g/dL (3.5-5.0); Alkaline Phosphatase 67 U/L (40-110); Anion Gap 14 mmol/L (10-20); BUN (Urea Nitrogen) 9 mg/dL (9.8-20.1); Bilirubin, Total 0.4 mg/dL (0.2-1.2); Calc. Creatinine Clearance 108 mL/min (70-130); Calcium 8.6 mg/dL (7.8-10.44); Carbon Dioxide 24 mmol/L (22-29); Chloride 108 mmol/L (98-107); Estimated GFR 102; Globulin 2.8 g/dL (2.4-3.5); Glucose 85 mg/dL (70-105); Potassium 4.3 mmol/L (3.5-5.1); Protein, Total 5.9 g/dL (6.0-8.3); Sodium 142 mmol/L (136-145)
[2023-04-13] MEDS: traMADol HCl 50 MG TAB PO PRN (11:40)
[2023-04-13 11:45] VITALS: BP 142/67; TEMP 97.5
[2023-04-13] MEDS ORDERED: busPIRone HCl 5 MG TAB PO SCH (15:00)
[2023-04-13] MEDS ORDERED: cefTRIAXone\\ROCEPHIN 1 GM in Sodium Chloride 0.9% 100 ML IVPB SCH (18:00)
[2023-04-13] MEDS ORDERED: Famotidine 20 MG TAB PO SCH (21:00)
[2023-04-14] MEDS ORDERED: Venlafaxine HCl 25 MG TAB PO SCH (09:00)
[2023-04-14] MEDS ORDERED: Glatiramer Acetate [Copaxone] 40 MG/ML Syringe SC SCH (09:00)
[2023-04-14] MEDS ORDERED: Fluconazole 100 MG TAB PO SCH (09:00)
[2023-04-14] MEDS ORDERED: Meloxicam 7.5 MG TAB PO SCH (09:00)
== END 2023-04-13 14:16 ==
LOC: NAV ERS 15:23 → NAV ACUTE 20:45
PROVIDERS: ADMIT Family Medicine; ATTEND Family Medicine
DX: N30.00 Acute cystitis without hematuria (principal); K21.9 Gastro-esophageal reflux disease without esophagitis; M19.90 Unspecified osteoarthritis, unspecified site; F03.93 Unspecified dementia, unspecified severity, with mood disturbance; B37.9 Candidiasis, unspecified; G35 Multiple sclerosis; I82.509 Chronic embolism and thrombosis of unspecified deep veins of unspecified lower extremity; Z79.891 Long term (current) use of opiate analgesic; Z79.899 Other long term (current) drug therapy; Z79.01 Long term (current) use of anticoagulants; Z86.73 Personal history of transient ischemic attack (TIA), and cerebral infarction without residual deficits
CPT/HCPCS: 71045; 80053 ×2; 81001; 82271; 83690; 85025 ×2; 87086; 96361; 96365; 96372; 96375; 96376; 99285; G0378 ×3; 36415; C9113; J0696; J1650; J2405; J3490; J7050